=== PATIENT | male | born 1995 | race Caucasian/White ===

== ENCOUNTER 2019-01-31 19:25 | Emergency (ER) | payer MEDICAID, SELFPAY ==
[2019-01-31 19:33] VITALS: BP 142/84; PULSE 84; RESP 17; TEMP 36.6; O2SAT 98
--- NOTE | 2019-01-31 20:07 | ED.GENADUL_ITS ---
Discharge Plan Disposition Patient Disposition: HOME Condition: Good Discharge Details Chief Complaint: RespSymp Clinical Impression: Bronchitis with bronchospasm Primary Care Provider: None,None ED Provider: Troy Gutierrezs and New Rx's Prescriptions: New prednisone 20 mg tablet 40 mg PO HS Qty: 8 RF: 0 doxycycline hyclate [Morgidox] 100 mg capsule 100 mg PO BID Qty: 12 RF: 0 albuterol sulfate 90 mcg/actuation HFA aerosol inhaler 2 puff IH Q4H PRN (Reason: shortness of breath or wheezing) Qty: 8.5 RF: 0 Continued Aspirin/Acetaminophen/Caffeine [Excedrin Migraine Caplet] 1 EACH Tablet 1 ea PO PRN PRNRF: 0 buprenorphine-naloxone [Suboxone] 4-1 mg Film 4 film sublingual DAILY RF: 0 Discharge Instructions Instructions: Doxycycline (By mouth), Albuterol (By breathing), Prednisone (By mouth), How to Use a Metered-Dose Inhaler and a Spacer (ED) Additional Instructions: Take prednisone at night for the next 4 days. Take antibiotic twice a day for a week. Use inhaler 2 puffs every 4-6 hours for shortness of breath or wheezing. Stay hydrated. Avoid sunlight due to photosensitivity related to antibiotic. Follow-up with primary care next week if not better. Return to emergency department if you develop increasing shortness of breath, mental status changes, chest pain, other concerns or problems. Referrals: Primary Care Provider [Outside] Medical Decision Making Patient with 2-week history of worsening respiratory illness. Was actually getting better and subsequently got worse. Is wheezing throughout. Will defer x-ray as at this point we will start steroids and antibiotics. We will give neb treatments here. We will plan discharge with MDI inhaler, steroids, antibiotic. Patient responded to nebs nicely. His wheezing is almost gone. He feels much better. Discharge home to follow-up with primary care next week if not better. Return to ED for increasing shortness of breath, chest pain, mental status changes, other concerns or problems. HPI General Mode of arrival: ambulatory . Date/Time Provider Initiated Documentation: 01/31/19 20:06 . Limitations to Documentation: no limitations . Information obtained by: patient and RN notes reviewed . HPI Narrative: Patient presents to emergency department with complaint of cough, wheezing, shortness of breath especially with exertion. He has been ill for 2 weeks now. He thought he was getting better but then suddenly got worse again. He has had sweats and chills but does not know whether he has had fever. He has had congestion on and off. Cough at this point is nonproductive. He has no pleuritic chest pain. He has no nausea vomiting. He is eating and drinking normally. He does not have a history of asthma but does smoke. He has had episodes of bronchitis in the past. Related Data Home Medications Medication Instructions Recorded Confirmed Aspirin/Acetaminophen/Caffeine 1 ea PO PRN PRN 07/11/17 01/31/19 [Excedrin Migraine Caplet] albuterol sulfate 2 puff IH Q4H PRN #8.5 gm 01/31/19 buprenorphine-naloxone [Suboxone] 4 film SUBLINGUAL DAILY 01/31/19 01/31/19 doxycycline hyclate [Morgidox] 100 mg PO BID #12 cap 01/31/19 prednisone 40 mg PO HS #8 tab 01/31/19 Previous Rx's Medication Instructions Recorded albuterol sulfate 2 puff IH Q4H PRN #8.5 gm 01/31/19 doxycycline hyclate [Morgidox] 100 mg PO BID #12 cap 01/31/19 prednisone 40 mg PO HS #8 tab 01/31/19 Allergies Allergy/AdvReac Type Severity Reaction Status Date / Time No Known Allergies Allergy Unverified 01/31/19 19:35 General Stated Complaint: RespSymp YESSY: 3 Review of Systems Review of Systems Narrative: As documented in HPI otherwise negative as below. Const: positive sweats and chills; no fever, weakness Resp: positive cough, SOB with exertion; no pleuritic pain CV: no CP, edema, syncope GI: no abdominal pain, nausea, vomiting, diarrhea Neuro: no headache, numbness, focal weakness, confusion PFS Social History Smoking/Tobacco Use Status: Current every day Tobacco Type: cigarettes Tobacco: How many years used: 10 Alcohol Intake: never Drug use: Never Substance use type: former substance user, crack/cocaine and heroin Do you feel safe at home: Yes Do you feel safe in your relationship?: Yes Exam Narrative Exam Narrative: Vitals: Afebrile. BP up a little. Vitals otherwise normal with normal saturations. Const: WDWN male in NAD. HEENT: NC/AT. Normal facial exam. TMs normal bilaterally. OP normal. Eyes: Normal conjunctiva and sclera. Neck: Supple. Trachea midline. Lungs: Normal respiratory effort. Lungs with diffuse wheezing throughout but decent air exchange. Cor: RRR without murmur/gallop. Good radial pulses. Neuro: A+O x 3. CN grossly in tact. Good strength and no focal deficit. Ext: No C/C/E. No calf tenderness. Skin: Warm and dry without rash. Course Vital Signs Vital signs: Vital Signs Temperature 97.9 F 01/31/19 19:33 Pulse 84 01/31/19 19:33 Respiratory Rate 17 01/31/19 19:33 Blood Pressure 142/84 H 01/31/19 19:33 Pulse Oximetry 98 01/31/19 19:33 Temperature 97.9 F 01/31/19 19:33 Temperature Source Skin 01/31/19 19:33 Pulse 84 01/31/19 19:33 Respiratory Rate 17 01/31/19 19:33 Respiratory Effort Short of Breath 01/31/19 19:41 Respiratory Depth Normal 01/31/19 19:41 Blood Pressure 142/84 H 01/31/19 19:33 Blood Pressure Position Sitting 01/31/19 19:33 Pulse Oximetry 98 01/31/19 19:33 Oxygen Delivery Method Room Air 01/31/19 19:33 Oxygen Flow Rate 0 01/31/19 19:33 Pain Level 0 01/31/19 19:33
[2019-01-31] MEDS: Doxycycline Hyclate 100 MG CAP PO ×2 (20:28→21:04)
[2019-01-31] MEDS: predniSONE 20 MG TAB 60 MG PO (20:28)
[2019-01-31 20:29] VITALS: RESP 17; RESP 4; O2SAT 98
[2019-01-31] MEDS: Albuterol/Ipratropium 3 ML UPD VIAL UPD (20:29)
[2019-01-31] MEDS: Albuterol 2.5 MG/3 ML INH SOLN VIAL UPD (20:29)
[2019-01-31] MEDS: Albuterol HFA 8 GM 60 PUFF INH IH (21:04)
[2019-01-31 21:08] VITALS: BP 124/67; PULSE 78; RESP 18; TEMP 36.8; O2SAT 98
== END 2019-01-31 21:15 | disposition home or self-care (01) ==
PROVIDERS: Emergency Provider Emergency Medicine
DX: J20.9 Acute bronchitis, unspecified (principal); F17.210 Nicotine dependence, cigarettes, uncomplicated
CPT/HCPCS: 94640; 99284; 99283; J7512; J7613; J7620

== ENCOUNTER 2019-02-05 11:21 | Emergency (ER) | payer MEDICAID, SELFPAY ==
[2019-02-05 11:35] VITALS: BP 134/62; PULSE 80; RESP 16; TEMP 36.8; O2SAT 99
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
[2019-02-05] MEDS: Lidocaine 5% Patch 1 PATCH TP (12:47)
[2019-02-05 13:00] VITALS: BP 129/64; PULSE 79; RESP 16; TEMP 36.9; O2SAT 98
== END 2019-02-05 13:02 | disposition home or self-care (01) ==
PROVIDERS: Emergency Provider Emergency Medicine
DX: S20.222A Contusion of left back wall of thorax, initial encounter (principal); Y04.0XXA Assault by unarmed brawl or fight, initial encounter
CPT/HCPCS: 99283; 71046; 71100

== ENCOUNTER 2020-03-11 07:53 | Outpatient (CLI) | payer MEDICAID, SELFPAY ==
[2020-03-14 16:40] LABS: Patient Race White; SARS-CoV-2 RNA Undetected (Undetected); SARS-CoV-2 Specimen Source Nasal
== END 2020-03-11 08:13 ==
PROVIDERS: Visit Provider Family Medicine
DX: R50.9 Fever, unspecified (principal); R05 Cough
CPT/HCPCS: U0003

== ENCOUNTER 2020-04-15 18:57 | Emergency (ER) | payer MEDICAID, SELFPAY ==
--- NOTE | 2020-04-15 19:03 | ED.GENADUL_ITS ---
Discharge Plan Disposition Patient Disposition: HOME Condition: Fair Discharge Details Clinical Impression: Bronchitis, Asthma exacerbation Primary Care Provider: None,None ED Provider: Yael Burnham Home Meds and New Rx's Prescriptions: New ipratropium-albuterol 0.5 mg-3 mg(2.5 mg base)/3 mL solution for nebulization 3 ml inhalation QID PRN (Reason: shortness of breath or wheezing) Qty: 90 RF: 0 Continued Aspirin/Acetaminophen/Caffeine [Excedrin Migraine Caplet] 1 EACH Tablet 1 ea PO PRN PRNRF: 0 buprenorphine-naloxone [Suboxone] 4-1 mg Film 2 film sublingual DAILY RF: 0 albuterol sulfate 90 mcg/actuation HFA aerosol inhaler 2 puff IH Q4H PRN (Reason: shortness of breath or wheezing) Qty: 8.5 RF: 0 Discharge Instructions Instructions: Ipratropium/Albuterol (By breathing), Acute Bronchitis (ED) Additional Instructions: Encourage water intake. Stop smoking. Please use the duo nebulizer as needed 4 times a day to help with the breath or wheezing. Follow-up with primary care in the next week, I have asked our care managers to help arrange for this. I have also referred you for further testing with respiratory therapy. Covid testing will be arranged as an outpatient due to Covid testing sent. They will call you to schedule a follow-up appointment. If you develop chest pain, difficulty breathing, increase shortness of breath, fevers or other new/worsening symptoms please seek care urgently once again. Otherwise, you will need to quarantine until your Covid testing results are back. Stand Alone Forms: POSITIVE COVID-19/TO BE TESTED, Work Release Medical Decision Making Patient is a pleasant 24-year-old male with past medical history of asthma presenting today with chief complaint of shortness of breath. Reports he has had a cough and chest congestion for the past few days. He denies any fevers or chills. States that he does feel tight. He has been using his albuterol inhaler 2X per day with minimal relief. He denies any chest pain. Denies any GI upset. States he has had similar symptoms historically. Brought in today for evaluation for potential COVID-19 as was required by his place of employment. On exam, patient appears to be no acute distress. He is noted to be slightly tachycardic with heart rate of 113. He is in no respiratory distress. He has wheezing noted scattered fairly diffusely. Plan to obtain chest x-ray and give duo nebulizer. Respiratory therapy was able to set the patient up with an outpatient nebulizer. He does report feeling much improved after the DuoNeb. He is clinically improved as his heart rate is coming down and his breathing is vastly improved. FINDINGS: Lungs: Lungs are adequately inflated and symmetric. No focal consolidation or pulmonary edema. Pleural space: No pleural effusion. No pneumothorax. Heart/Mediastinum: Cardiomediastinal contours within normal limits. Bones/joints: No acute osseous finding. IMPRESSION: No acute cardiopulmonary finding. Discussed his findings with the patient. We discussed this likely associated with acute viral illness with asthma exacerbation and/or bronchitis. He will continue to use the nebulizer as instructed by RT. Patient was sent home with DuoNeb treatments. Patient does not have a primary care locally. I have asked that care management help arrange for follow-up. He will follow-up for outpatient COVID-19 testing in the tent will continue to quarantine until his results are back. Work note will be given. RT is also recommended outpatient testing for PFTs. After his acute illness, he will follow-up with RT. Strict return precautions were given. All his questions and concerns were addressed and he is in agreement this plan. HPI General Mode of arrival: ambulatory . Date/Time Provider Initiated Documentation: 04/15/20 19:03 . Limitations to Documentation: no limitations . Information obtained by: patient, RN notes reviewed and old records reviewed . History of Present Illness 24 year old M presents to the emergency department with the chief complaint of cough, congestion, described as moderate and similar to prior episodes, Quality is described as other (not painful, feels tight), and is localized to the chest. Patient started experiencing this day(s) and it has been constant. Medication improves symptom(s), (used albuterol inhaler x 2 today) No exacerbating factors reported . Patient notes cough and shortness of breath; denies chest pain, fever/chills, loss of appetite, nausea/vomiting, rash and weakness. Patient did receive the following treatments prior to arrival, none Related Data Home Medications Medication Instructions Recorded Confirmed Aspirin/Acetaminophen/Caffeine 1 ea PO PRN PRN 07/11/17 04/15/20 [Excedrin Migraine Caplet] albuterol sulfate 2 puff IH Q4H PRN #8.5 gm 01/31/19 04/15/20 buprenorphine-naloxone [Suboxone] 2 film SUBLINGUAL DAILY 01/31/19 04/15/20 ipratropium-albuterol 3 ml INHALATION QID PRN #90 ml 04/15/20 Previous Rx's Medication Instructions Recorded albuterol sulfate 2 puff IH Q4H PRN #8.5 gm 01/31/19 ipratropium-albuterol 3 ml INHALATION QID PRN #90 ml 04/15/20 Allergies Allergy/AdvReac Type Severity Reaction Status Date / Time No Known Allergies Allergy Unverified 04/15/20 19:22 General YESSY: 3 Review of Systems Constitutional Constitutional: Reports as per HPI, Denies chills, Denies fever(s), Denies headache(s), Denies lethargy and Denies poor appetite Eyes Eyes: Denies change in vision ENT Ears, Nose, Mouth, and Throat: Denies dizziness and Denies headache(s) Cardiovascular Cardiovascular: Reports as per HPI, Denies chest pain at rest, Denies chest pain with activity, Denies lightheadedness, Denies radiating jaw, neck or arm pain and Reports dyspnea Respiratory Respiratory: Reports as per HPI, Reports chest congestion, Reports cough, Denies hemoptysis, Denies pain on inspiration, Denies pain with cough, Reports dyspnea, Denies stridor and Reports wheezing Gastrointestinal Gastrointestinal: Reports as per HPI, Denies abdominal pain, Denies diarrhea, Denies nausea and Denies vomiting Genitourinary Genitourinary: Denies system reviewed and no additional complaints, except as documented (denies change in urinary habits) Musculoskeletal Musculoskeletal: Reports as per HPI and Denies back pain Integumentary/Breasts Skin/Breast: Reports as per HPI and Denies rash Neurologic Neurologic: Reports as per HPI, Denies dizziness and Denies headache(s) Allergic/Immunologic Allergic/Immunologic: Reports wheezing PFSH Social History Smoking/Tobacco Use Status: Current every day Tobacco Type: cigarettes Tobacco: How many years used: 10 Smoking risk assessment performed?: Yes Alcohol Intake: current Alcohol Intake frequency: holidays/special occasions only Drug use: Never Substance use type: former substance user, marijuana, crack/cocaine and heroin Details: uses marijuana daily. Has been clean from [facility] x 11 months Do you feel safe at home: Yes Do you feel safe in your relationship?: Yes Exam Const General: cooperative, healthy appearing, comfortable, no acute distress and well developed Nutritional Appearance: average body habitus and well nourished Orientation: alert, awake and oriented x3 HENMT Head: normal to inspection Ears: hearing grossly normal bilaterally Mouth: moist mucous membranes Chest Chest: normal inspection of the chest, normal palpation of entire chest wall and no crepitus Resp Effort & Inspection: normal respiratory effort, able to speak in complete sente nces and no respiratory distress Auscultation: no crackles, no rales, no rhonchi and wheezes expiratory wheezes, inspiratory wheezes and scattered wheezes Cardio Rate: tachycardic Rhythm: regular rhythm Heart Sounds: S1 normal and S2 normal Skin General skin exam: no rashes or lesions noted Trauma: no lacerations or abrasions Neuro General: patient alert, patient awake and patient oriented x3 Cognition: normal cognition Speech: speech normal Gait: normal gait Extrem General: normal to inspection, capillary refill normal, no pedal edema, no calf tenderness and normal gait Psych Appearance: grossly normal and well kempt Mental Status: mental status grossly normal Speech and Movement: speech and movement normal
[2020-04-15 19:05] VITALS: BP 122/82; PULSE 113; RESP 20; TEMP 37.1; O2SAT 96
--- NOTE | 2020-04-15 19:15 | DI.RAD_ITS ---
EXAM: XR PORTABLE CHEST AP CLINICAL HISTORY: SOB, cough. TECHNIQUE: 2D digital imaging was performed. COMPARISON: CR XR RIBS LT W PA LAT CHEST from 02/05/2019 FINDINGS: Heart size normal. Mediastinum is not widened. Lungs are clear with no infiltrates nor pleural effu sions. No pneumothorax. IMPRESSION: No acute pulmonary findings on this AP portable view of the chest. DATA REPOSITORY: RADIATION DOSE DELIVERED:
[2020-04-15 19:36] VITALS: PULSE 114; RESP 20; RESP 4; O2SAT 96
[2020-04-15] MEDS: Albuterol/Ipratropium 3 ML UPD VIAL UPD (19:36)
[2020-04-15 19:41] VITALS: RESP 20
[2020-04-15 19:45] VITALS: BP 119/67; PULSE 98; RESP 20; O2SAT 99
--- NOTE | 2020-04-15 20:03 | DI.VRAD_ITS ---
PROCEDURE INFORMATION: Exam: XR Chest, 1 View Exam date and time: 04/15/2020 7:28 PM Age: 24 years old Clinical indication: Other: SOB, cough TECHNIQUE: Imaging protocol: XR of the chest Views: 1 view. COMPARISON: CR XR RIBS LT W PA LAT CHEST 02/05/2019 12:06 PM FINDINGS: Lungs: Lungs are adequately inflated and symmetric. No focal consolidation or pulmonary edema. Pleural space: No pleural effusion. No pneumothorax. Heart/Mediastinum: Cardiomediastinal contours within normal limits. Bones/joints: No acute osseous finding. IMPRESSION: No acute cardiopulmonary finding. Dictated and Authenticated by: Wu Nichols MD. Ordering:STEW Conley MD
[2020-04-15] MEDS: Albuterol/Ipratropium 3 ML UPD VIAL 2 ML UPD (20:41)
--- NOTE | 2020-04-15 23:52 | NUR.NOTE ---
referral for pcp establishment was sent to [facility] Nursing Note:
--- NOTE | 2020-04-16 18:02 | PDOC.ERCMPRO ---
- If Service Date Differs Date of service: 04/16/20 Time of Service: 18:02 Care Management Progress Note Nila is seen in the ED on 04/15/20 for asthma/bronchitis. At the request of ED provider, [facility] coordinates a referral to Shan Murphy MD, on-call provider, of [facility], to assist Nila in obtaining a follow up appointment and in establishing care with a PCP. He has Medicaid for insurance.
== END 2020-04-15 20:47 | disposition home or self-care (01) ==
PROVIDERS: Emergency Provider Physician Assistant
DX: J44.0 Chronic obstructive pulmonary disease with (acute) lower respiratory infection (principal); J20.9 Acute bronchitis, unspecified; J45.901 Unspecified asthma with (acute) exacerbation; F17.210 Nicotine dependence, cigarettes, uncomplicated
CPT/HCPCS: 94640; 99284; 71045; J7620

== ENCOUNTER 2020-04-19 17:11 | Outpatient (REF) | payer MEDICAID, SELFPAY ==
[2020-04-22 16:05] LABS: COVID-19 RT-PCR Result NEGATIVE (Negative)
== END 2020-04-19 17:31 ==
LOC: NCHCN 17:11
PROVIDERS: Visit Provider Physician Assistant Medical
DX: Z11.59 Encounter for screening for other viral diseases (principal)
CPT/HCPCS: U0003

== ENCOUNTER 2021-08-27 17:23 | Outpatient (REF) | payer MEDICAID, SELFPAY | END 2021-08-27 17:24 | disposition home or self-care (01) | LOC: LBN 17:23 | PROVIDERS: Visit Provider Physician Assistant Medical | DX: H60.02 Abscess of left external ear (principal) | CPT/HCPCS: 87077; 87070; 87205 ==

== ENCOUNTER 2021-11-18 03:24 | Emergency (ER) | payer MEDICAID, SELFPAY ==
[2021-11-18 03:39] VITALS: BP 157/87; PULSE 111; RESP 16; TEMP 36; O2SAT 96
--- NOTE | 2021-11-18 04:01 | ED.GENADUL_ITS ---
Discharge Plan Disposition Patient Disposition: HOME Condition: Improving Discharge Details Clinical Impression: Cellulitis of multiple sites of upper arm Primary Care Provider: None,None ED Provider: Josemanuel Dotson Home Meds and New Rx's Prescriptions: New sulfamethoxazole-trimethoprim [Bactrim DS] 800-160 mg tablet 1 tab PO BID 7 Days Qty: 14 0RF Continued Aspirin/Acetaminophen/Caffeine [Excedrin Migraine Caplet] 1 EACH Tablet 1 ea PO PRN PRN buprenorphine-naloxone [Suboxone] 4-1 mg Film 2 film sublingual DAILY Rx Instructions: 2 mg 1 film Daily albuterol sulfate 90 mcg/actuation HFA aerosol inhaler 2 puff IH Q4H PRN (Reason: shortness of breath or wheezing) Qty: 8.5 0RF ipratropium-albuterol 0.5 mg-3 mg(2.5 mg base)/3 mL solution for nebulization 3 ml inhalation QID PRN (Reason: shortness of breath or wheezing) Qty: 90 0RF Discharge Instructions Instructions: Cellulitis (ED) Additional Instructions: Please do your best to stop picking at your wounds. Gentle soap and water cleanse once daily then pat dry. Take antibiotics as prescribed. Return to ER for any acute concerns. No alcohol with the Bactrim as it can cause an adverse reaction Medical Decision Making 26-year-old male presents with concern for MRSA abscesses. He recently relapsed on cocaine and heroin and when he is using he tends to pick at his skin. On exam he has numerous areas of excoriated lesions. None are true abscesses. I will place him on a course of Bactrim. He is stable and appropriate for outpatient management HPI General Mode of arrival: ambulatory . Date/Time Provider Initiated Documentation: 11/18/21 03:55 . Limitations to Documentation: no limitations . Information obtained by: patient . History of Present Illness 26 year old M presents to the emergency department with the chief complaint of Infected skin lesions on the arms, described as mild, and is localized to the left, right and upper extremity. Patient reports no radiation. Patient started experiencing this day(s) and it has been constant. No relieving factors improve symptom(s), No exacerbating factors reported . Patient notes denies fever/chills. Patient did receive the following treatments prior to arrival, none Related Data Home Medications Medication Instructions Recorded Confirmed Aspirin/Acetaminophen/Caffeine 1 ea PO PRN PRN 02/26/18 12/01/20 [Excedrin Migraine Caplet] albuterol sulfate 90 mcg/actuation 2 puff inhalation Q4H PRN 01/31/19 04/15/20 aerosol inhaler shortness of breath or wheezing #8.5 grams buprenorphine 4 mg-naloxone 1 mg 2 film sublingual DAILY 01/31/19 04/15/20 sublingual film (Suboxone) ipratropium 0.5 mg-albuterol 3 mg 3 ml inhalation QID PRN shortness 04/15/20 (2.5 mg base)/3 mL nebulization of breath or wheezing #90 mL soln sulfamethoxazole 800 1 tab PO BID 7 days #14 tabs 11/18/21 mg-trimethoprim 160 mg tablet (Bactrim DS) Previous Rx's Medication Instructions Recorded albuterol sulfate 90 mcg/actuation 2 puff inhalation Q4H PRN 01/31/19 aerosol inhaler shortness of breath or wheezing #8.5 grams ipratropium 0.5 mg-albuterol 3 mg 3 ml inhalation QID PRN shortness 04/15/20 (2.5 mg base)/3 mL nebulization of breath or wheezing #90 mL soln sulfamethoxazole 800 1 tab PO BID 7 days #14 tabs 11/18/21 mg-trimethoprim 160 mg tablet (Bactrim DS) Allergies Allergy/AdvReac Type Severity Reaction Status Date / Time No Known Allergies Allergy Unverified 11/18/21 03:44 General Stated Complaint: RashLesion YESSY: 4 Review of Systems Narrative: Using cocaine and heroin and has been picking at skin lesions [facility] All Active Problems (Updated 11/18/21 @ 04:04 by Josemanuel Dotson MD) Cellulitis of multiple sites of upper arm (Acute) Social History Smoking/Tobacco Use Status: Current every day Tobacco Type: cigarettes Tobacco: How many years used: 10 Smoking risk assessment performed?: Yes Alcohol Intake: never Drug use: Daily Substance use type: marijuana, crack/cocaine and heroin Do you feel safe at home: Yes Do you feel safe in your relationship?: Yes Exam Narrative Exam Narrative: GEN: awake, alert, oriented 3. Pleasant, well groomed, interactive. HEAD: Normocephalic, atraumatic ENT: Mucous membranes moist, oropharynx unremarkable, External ear exam unrem arkable EYES: PERRL, EOMI NECK: Full ROM, no ANDRIA, no menigismus CHEST/RESP: No respiratory EXT: Full ROM, bilateral arms with cystic lesions, excoriated Neuro: Grossly normal neurologic exam, conversant, interactive. Psych: Speech fluent, thoughts congruent, affect normal Course Vital Signs Vital signs: Vital Signs Temperature 36.0 C L 11/18/21 03:39 Pulse 111 H 11/18/21 03:39 Respiratory Rate 16 11/18/21 03:39 Blood Pressure 157/87 H 11/18/21 03:39 Pulse Oximetry 96 11/18/21 03:39 Temperature 36.0 C L 11/18/21 03:39 Temperature Source Oral 11/18/21 03:39 Pulse 111 H 11/18/21 03:39 Respiratory Rate 16 11/18/21 03:39 Respiratory Effort Non-Labored 11/18/21 03:41 Blood Pressure 157/87 H 11/18/21 03:39 Blood Pressure Position Sitting 11/18/21 03:39 Pulse Oximetry 96 11/18/21 03:39 Oxygen Delivery Method Room Air 11/18/21 03:39 Oxygen Flow Rate 0 11/18/21 03:39 Pain Level 5 11/18/21 03:39
== END 2021-11-18 04:30 | disposition home or self-care (01) ==
PROVIDERS: Emergency Provider Emergency Medicine
DX: L03.113 Cellulitis of right upper limb (principal)
CPT/HCPCS: 99283

== ENCOUNTER 2023-01-25 23:08 | Emergency (ER) | payer MEDICAID, SELFPAY ==
[2023-01-25 23:10] VITALS: BP 178/98; PULSE 119; RESP 20; TEMP 38.4; O2SAT 97
--- NOTE | 2023-01-25 23:18 | ED.GENADUL_ITS ---
Discharge Plan Disposition Patient Disposition: Home Condition: Stable Discharge Details Clinical Impression: Cellulitis of face ED Provider: Ernesto Blount Home Meds and New Rx's Prescriptions: New amoxicillin-pot clavulanate 875-125 mg tablet 1 tab PO BID Qty: 14 0RF amoxicillin-pot clavulanate 875-125 mg tablet 1 tab PO BID Qty: 14 0RF sulfamethoxazole-trimethoprim [Bactrim DS] 800-160 mg tablet 1 tab PO BID Qty: 14 0RF Continued Aspirin/Acetaminophen/Caffeine [Excedrin Migraine Caplet] 1 EACH Tablet 1 ea PO PRN PRN buprenorphine-naloxone [Suboxone] 4-1 mg Film 2 film sublingual DAILY Rx Instructions: 2 mg 1 film Daily albuterol sulfate 90 mcg/actuation HFA aerosol inhaler 2 puff IH Q4H PRN (Reason: shortness of breath or wheezing) Qty: 8.5 0RF ipratropium-albuterol 0.5 mg-3 mg(2.5 mg base)/3 mL solution for nebulization 3 ml inhalation QID PRN (Reason: shortness of breath or wheezing) Qty: 90 0RF Discharge Instructions Instructions: Cellulitis (ED) Additional Instructions: if not better within a week follow up with your primary care provider or urgent care if you feel more ill, have severe worsening pain or difficulty breathing return to the emergency department Medical Decision Making 27 yo male with hx of substance abuse currently has been using heroin, states he used 6 hours ago, comes in with 3-4 days of upper lip redness and swelling. Did not notice a fever at home but is febrile here. He denies injecting into his lip or face. His upper lip and the skin above it are read and swollen. No swelling around the eyes, eomi without pain, no visible abscess in the mouth. No murmurs or janeway lesions. Does have numerous excoriations over his body as he states he has a tendency to pick his skin while using drugs. Caox4 with clear speech and clinically sober on arrival. Suspect facial cellulitis, will obtain cbc, cmp and ct to evaluate for abscess. pt stable, wbc of 21, ct shows 2 small abscess (1.8cm over left maxillary buccal cortex and upper lip 2x1.4cm). I offered to attempt I and D, pt declines at this time, has decision making capacity and understands without drainage it could get worse and lead to worsening infection which could lead to potential permanent disability and even and he is willing to accept these risks. He understands that he needs to return immediately should he worsen in any way, and he will f/u with his pcp/express care if not improving within a week. Differential Diagnosis Differential Diagnosis: cellulitis, abscess Medical Records Medical records reviewed: Yes I reviewed the patient's medical records. Imaging Data Radiologic Study: Attestation: I personally reviewed and interpreted this imaging study as follows: Imaging: CT Scan Radiologist's impression: IMPRESSION: Upper lip abscess as described. Suspected left-sided subperiosteal abscess as described. Mild submandibular adenopathy presumed reactive Lab Data Lab results reviewed: Yes I reviewed the patient's lab results. HPI General Mode of arrival: ambulatory . Date/Time Provider Initiated Documentation: 01/25/23 23:09 . Limitations to Documentation: no limitations . Information obtained by: patient . History of Present Illness 27 year old M presents to the emergency department with the chief complaint of lip swelling, described as moderate, Patient started experiencing this day(s) (4) and it has been constant. No relieving factors improve symptom(s), No exacerbating factors reported . Patient notes no other symptoms.; denies chest pain and shortness of breath. Patient did receive the following treatments prior to arrival, none Related Data Home Medications Medication Instructions Recorded Confirmed Aspirin/Acetaminophen/Caffeine 1 ea PO PRN PRN 07/11/17 01/25/23 [Excedrin Migraine Caplet] albuterol sulfate 90 mcg/actuation 2 puff inhalation Q4H PRN 01/31/19 01/25/23 aerosol inhaler shortness of breath or wheezing #8.5 grams buprenorphine 4 mg-naloxone 1 mg 2 film sublingual DAILY 01/31/19 01/25/23 sublingual film (Suboxone) ipratropium 0.5 mg-albuterol 3 mg 3 ml inhalation QID PRN shortness 04/15/20 01/25/23 (2.5 mg base)/3 mL nebulization of breath or wheezing #90 mL soln amoxicillin 875 mg-potassium 1 tab PO BID #14 tabs 01/26/23 clavulanate 125 mg tablet amoxicillin 875 mg-potassium 1 tab PO BID #14 tabs 09/13/23 clavulanate 125 mg tablet sulfamethoxazole 800 1 tab PO BID #14 tabs 01/26/23 mg-trimethoprim 160 mg tablet (Bactrim DS) Previous Rx's Medication Instructions Recorded albuterol sulfate 90 mcg/actuation 2 puff inhalation Q4H PRN 01/31/19 aerosol inhaler shortness of breath or wheezing #8.5 grams ipratropium 0.5 mg-albuterol 3 mg 3 ml inhalation QID PRN shortness 04/15/20 (2.5 mg base)/3 mL nebulization of breath or wheezing #90 mL soln amoxicillin 875 mg-potassium 1 tab PO BID #14 tabs 01/26/23 clavulanate 125 mg tablet amoxicillin 875 mg-potassium 1 tab PO BID #14 tabs 01/26/23 clavulanate 125 mg tablet sulfamethoxazole 800 1 tab PO BID #14 tabs 01/26/23 mg-trimethoprim 160 mg tablet (Bactrim DS) Allergies Allergy/AdvReac Type Severity Reaction Status Date / Time No Known Allergies Allergy Unverified 11/18/21 03:44 General Stated Complaint: RashLesion YESSY: 4 Review of Systems All systems reviewed & are unremarkable except as noted in HPI and below Constitutional Constitutional: Denies chills, Denies fever(s) and Denies weakness Eyes Eyes: Denies loss of vision ENT Ears, Nose, Mouth, and Throat: Denies change in voice Cardiovascular Cardiovascular: Denies chest pain and Denies dyspnea Respiratory Respiratory: Denies cough and Denies dyspnea Gastrointestinal Gastrointestinal: Denies abdominal pain, Denies nausea and Denies vomiting Musculoskeletal Musculoskeletal: Denies joint swelling Neurologic Neurologic: Denies loss of vision and Denies weakness PFSH All Active Problems (Updated 01/26/23 @ 00:48 by Ernesto Blount MD) Cellulitis of face (Acute) Social History Smoking/Tobacco Use Status: Current every day Tobacco Type: cigarettes Tobacco: How many years used: 10 Smoking risk assessment performed?: Yes Alcohol Intake: never Drug use: Daily Substance use type: marijuana, crack/cocaine and heroin Do you feel safe at home: Yes Do you feel safe in your relationship?: Yes Exam Const General: no acute distress Orientation: alert HENDC Head: normal to inspection Ears: external ears normal General nose exam: external nose normal Mouth: moist mucous membranes Eyes General: appearance normal, both eyes and all related structures Neck Neck: normal visual inspection Resp Effort & Inspection: normal respiratory effort and able to speak in complete sentences Auscultation: clear to auscultation bilaterally Cardio Jugular venous pressure: no JVD Rate: regular rate Heart Sounds: no murmurs Skin General skin exam: elasticity normal Neuro General: patient alert and patient oriented x3 Extrem General: normal to inspection Psych Mental Status: mental status grossly normal Course Vital Signs Vital signs: Vital Signs Temperature 38.4 C H 01/25/23 23:10 Pulse 119 H 01/25/23 23:10 Respiratory Rate 20 01/25/23 23:10 Blood Pressure 178/98 H 01/25/23 23:10 Pulse Oximetry 97 01/25/23 23:10 Temperature 38.4 C H 01/25/23 23:10 Pulse 119 H 01/25/23 23:10 Respiratory Rate 20 01/25/23 23:10 Respiratory Effort Normal 01/25/23 23:14 Blood Pressure 178/98 H 01/25/23 23:10 Pulse Oximetry 97 01/25/23 23:10 Oxygen Delivery Method Room Air 01/25/23 23:10 Oxygen Flow Rate 0 01/25/23 23:10 Lab/Test Results Lab/Test Results: 01/25/23 23:17 Blood Blood Culture - Pending 01/25/23 23:17 Blood Blood Culture - Pending
--- NOTE | 2023-01-25 23:19 | DI.CT_ITS ---
Exam(s) CT FACIAL W EXAM: CT FACIAL W CLINICAL HISTORY: facial cellulitis, ?abscess. TECHNIQUE: Imaging Protocol: Axial computed tomography images with coronal and sagittal reformatted images were created and reviewed. No IV contrast COMPARISON: No exams were available for comparison FINDINGS: MAXILLOFACIAL CT SCAN: Orbits: There is no evidence of orbital fracture. No abnormal soft tissue findings in the orbits. Paranasal sinuses.: No fluid levels. Post inflammatory sentences noted in floor of the right maxilla ry sinus. No associated fluid level. No bone dehiscence. Facial soft tissues: There is swelling of the anterior left side of the face and extending across the midline under the level of the nose. There is abnormal swelling of the entire upper lip. There is a peripherally enhancing abscess in this region anterior midline and slightly left of midline measuri ng approximately 1.9 x 1.4 x 3 cm cm. Also involves the upper lip. Dental: There is a right-sided periosteal tooth abscess in the mandible. This tooth appears tract medrano s best seen on the coronal images. Osseous: Nasal bone is intact. Nasal septum intact. No fractures evident. Nasopharynx: Unremarkable Oropharynx: No evidence of tonsillar abscess. Hypopharynx: Unremarkable. Lymph nodes: Submandibular adenopathy which is most probably reactive. Salivary glands: Parotid and submandibular glands unremarkable. IMPRESSION: Sub nasal frontal face swelling with prominent abscess also involving the upper lip. Right-sided apical tooth abscess. Appropriate rapid referral recommended. First read by [facility]. RADIATION DOSE DELIVERED: 359.62mGy.cm Total DLP DATA REPOSITORY: All CT scans at this facility are submitted to the National Radiology Data Registry (NRDR) Dose Index Registry (DIR) with the [employer] (ACR). RADIATION OPTIMIZATION: All CT scans at this facility use at least one of these dose optimization te chniques: automated exposure control; mA and/or kV adjustment per patient size (includes targeted exa ms where dose is matched to clinical indication); or iterative reconstruction.
[2023-01-25 23:57] LABS: Abs Immature Grans 0.09 10^3/uL (0.0-0.06); Basophils % 0.3; HCT 40.1 % (40.0-50.0); HGB 13.7 g/dL (13.5-17.5); Immature Grans % 0.4; Lymphocytes % 9.2; MCH 30.4 pg (27.0-33.0); MCHC 34.2 % (32.0-36.0); MCV 89 fL (80-95); MPV 8.6 fL (8.0-11.0); Monocytes % 8.3; Neutrophils % 81.8; Platelet Count 319 10^3/uL (130-400); RDW-SD 42.6 fL; WBC 21.68 10^3/uL (4.4-10.8)
[2023-01-26] LABS: Absolute Basophil Count 0.07 10^3/uL (0.0-0.2); Absolute Lymphocyte Count 1.99 10^3/uL (1.2-3.4); Absolute Neutrophil Count 17.73 10^3/uL (1.2-6.7)
[2023-01-26] MEDS: Normal Saline 1,000 ML 1000 ML IV (00:01)
[2023-01-26] MEDS: cefTRIAXone 2 GM/50 ML BAG IVPB (00:01)
[2023-01-26] MEDS: Dexamethasone 10 MG/ML VIAL IVP (00:01)
[2023-01-26] MEDS: Omnipaque 350 MG/ML 100 ML BTL IV (00:05)
[2023-01-26] MEDS: Normal Saline - Diluent 50 ML VIAL IJ (00:05)
[2023-01-26] MEDS: Normal Saline Flush 10 ML SYR IVP (00:06)
[2023-01-26 00:23] LABS: ALT 22 U/L (16-63); AST 21 U/L (15-37); Albumin 3.9 g/dL (3.4-5.0); Alkaline Phosphatase 85 U/L (46-116); Anion Gap 7.6 mmol/L (3-11); BUN 10 mg/dL (7-18); Bilirubin, Total 0.8 mg/dL (0.2-1.0); CO2 28.4 mmol/L (21.0-32.0); Calcium 8.7 mg/dL (8.5-10.1); Chloride 97 mmol/L (98-107); Estimated GFR 105.14 (mL/min/1.73m2); Glucose 104 mg/dL (74-106); Potassium 3.7 mmol/L (3.5-5.1); Sodium 133 mmol/L (136-145); Total Protein 8.4 g/dL (6.4-8.2)
--- NOTE | 2023-01-26 00:37 | DI.VRAD_ITS ---
PROCEDURE INFORMATION: Exam: CT Maxillofacial With Contrast Exam date and time: 01/26/2023 12:05 AM Age: 27 years old Clinical indication: Other: Facial cellulitis, ? abscess TECHNIQUE: Imaging protocol: Computed tomography of the face with contrast. Radiation optimization: All CT scans at this facility use at least one of these dose optimization techniques: automated exposure control; mA and/or kV adjustment per patient size (includes targeted exams where dose is matched to clinical indication); or iterative reconstruction. Contrast material: OMNIPAQUE 350; Contrast volume: 100 ml; Contrast route: INTRAVENOUS (IV); COMPARISON: No relevant prior studies available. FINDINGS: Orbital cavities: Orbits are normal. Globes are unremarkable. Bones/joints: No acute fracture. Paranasal sinuses: Normal. No air-fluid levels. Soft tissues: Left cheek swelling and subperiosteal abscess measuring 1 point 8 cm axial image 89 overlying the left maxillary buccal cortex. Upper lip abscess suspected measuring up to 2 x 1.4 cm on coronal image 14 Mildly enlarged left greater than right submandibular lymph nodes IMPRESSION: Upper lip abscess as described. Suspected left-sided subperiosteal abscess as described. Mild submandibular adenopathy presumed reactive Dictated and Authenticated by: Nacho Olivas MD. Ordering:RICK Orozco MD
[2023-01-26 01:01] VITALS: BP 136/81; PULSE 98; RESP 18; O2SAT 96
[2023-01-26] MEDS: Sulfameth/Trimeth DS TAB 1 TAB PO (01:03)
== END 2023-01-26 07:33 | disposition home or self-care (01) ==
PROVIDERS: Emergency Provider Emergency Medicine
DX: L03.211 Cellulitis of face (principal); F17.210 Nicotine dependence, cigarettes, uncomplicated
CPT/HCPCS: 80053; 87040; 96361; 96365; 96375; 99285; 70487; 85025; 99284; J1100; J3490

== ENCOUNTER 2023-10-11 14:16 | Inpatient (IN) | payer MEDICAID, SELFPAY ==
[2023-10-11] VITALS (39 sets, daily range): BP systolic 115–159; BP diastolic 77–97; PULSE 58–145; RESP 9–23; TEMP 36.4–37.3; O2SAT 97–100
--- NOTE | 2023-10-11 14:30 | RT.EKG_ITS ---
APPROVED REPORT Exam: Resting ECG Reason for Exam: Chest Pain Patient Location: E HR:119 bpm ECG Measurements Heart Rate 119 AXIS NJ 171 P 79 QRSd 90 QRS 91 QT 301 T 2 QTc 422 Conclusion Sinus tachycardia...rate> 99 ST elev, probable normal early repol pattern...ST elevation, age<55 Narrow complex sinus tachycardia at a rate of 119. Normal axis. Intervals within normal limits. Mi ld upsloping ST segments V2 and V3. No ST segment depressions. No prior for comparison. No acute i njury pattern.
--- NOTE | 2023-10-11 14:30 | DI.CT_ITS ---
Exam(s) CT CHEST PE ABD PELVIS W EXAM: CT CHEST PE ABD PELVIS W CLINICAL HISTORY: Left-sided chest pain upper abdominal pain. TECHNIQUE: Imaging Protocol: Axial computed tomography images with coronal and sagittal reformatted images were created and reviewed CONTRAST MATERIAL: Intravenous: Omnipaque 350 Contrast volume:100 ml Oral: / no COMPARISON: CR,XR XR PORTABLE CHEST AP from 04/15/2020 US POCUS EXAM from 10/11/2023 FINDINGS: CHEST: Tracheobronchial tree: Patent. Pulmonary parenchyma: Focal areas of infiltration at the left lower lobe, with cavitation. Small inf iltrate anterior lingula. Pleura: No effusion or pneumothorax. Lymph nodes: Within normal limits. Aorta: Thoracic portion non-dilated. Pulmonary arteries: No evidence of emboli. Heart: No pericardial effusion. Bones: Unremarkable for age. No lytic or blastic lesions.No compression fractures. Soft tissues: Unremarkable. ABDOMEN and PELVIS: Exam is limited by lack of intra-abdominal fat and lack of oral contrast. Liver: Normal density. No measurable mass. Gallbladder and biliary tract: No evidence of stones or wall thickening. No biliary dilatation. Pancreas: Normal density, no abnormal calcifications or inflammatory process. Spleen: Normal. Kidneys: There are patchy areas of decreased perfusion involving both kidneys, suspicious for pyelone phritis. No radiodense stones. No obstructive uropathy. No suspicious masses seen. Adrenal glands: No masses seen. Aorta: Abdominal portion non-dilated. Lymph nodes: Within normal limits. Soft tissues: Unremarkable. Bladder: Unremarkable. Bowel: No obstruction or bowel wall thickening. Peritoneal cavity: No ascites. No focal collection. No mesenteric inflammatory response. Bones: Unremarkable for age. Reproductive organs: Within normal limits. IMPRESSION: Cavitary pneumonia in the left lower lobe. No evidence of pulmonary emboli. Bilateral areas of patchy perfusion suspicious for pyelonephritis. Findings could also represent foc al infarcts. Findings called to Dr. Tello of the emergency department. RADIATION DOSE DELIVERED: 938.12mGy.cm Total DLP DATA REPOSITORY: All CT scans at this facility are submitted to the National Radiology Data Registry (NRDR) Dose Index Registry (DIR) with the [employer] (ACR). RADIATION OPTIMIZATION: All CT scans at this facility use at least one of these dose optimization te chniques: automated exposure control; mA and/or kV adjustment per patient size (includes targeted exa ms where dose is matched to clinical indication); or iterative reconstruction.
--- NOTE | 2023-10-11 14:35 | W.ED.GENAD ---
Discharge Plan Disposition Patient Disposition: Admit to [facility] Discharge Details Clinical Impression: Left lower lobe pneumonia, Opiate withdrawal, Acute superficial venous thrombosis of both lower extremities Admit Date/Time: 10/11/23 19:07 Admit Provider: Donal Guzman Attending Provider: Donal Guzman Primary Care Provider: Unknown,Unknown ED Provider: Shan Tello Discharge Data Discharge Date/Time-TO BE ENTERED AT DEPARTURE: 10/11/23 20:01 HPI General Date/Time Provider Initiated Documentation: 10/11/23 14:35. HPI Narrative: MDM This is a tachycardic normothermic 28-year-old IV drug user with signs of DVTs and chest pain concerning for the possibility of PE and endocarditis for which patient will undergo CT angiogram of his chest. Given left upper quadrant tenderness we will also obtain CT of stomach to assess for splenic arterial aneurysm. No pain or proportion to suggest necrotizing soft tissue infection. No dysuria nor frequency so my suspicion is low for UTI however given my concerns for sepsis I did treat with broad-spectrum antibiotics using piperacillin/tazobactam and vancomycin after drawing 2 sets of blood cultures and checking a lactate. ECG nonischemic however will obtain troponin to assess for myocardial injury given left-sided chest pain. No trauma and equal breath sounds so my suspicion for pneumothorax is low. Patient has no significant lower extremity edema so I did not obtain a proBNP. No tearing quality to suggest aortic dissection. No vomiting to suggest increased risk for esophageal rupture. He has been injecting IV drugs in his right lower extremity where there is swelling and fluctuance concerning for thrombophlebitis versus abscess. Patient will undergo bilateral duplex studies of his lower extremities given he also has contralateral left popliteal fossa tenderness and swelling. Patient is able to move his left knee so I am not concerned for septic joint. Bilateral feet are warm and well-perfused I do not feel that the patient required an angiogram with runoffs as I was not concerned for critical limb ischemia. Patient does have a cough concern for the possibility of pneumonia. Will reassess following labs and imaging. Will provide 1 L of IV fluids and 50 mcg of fentanyl. 3:45 PM CBC shows leukocytosis similar to prior dated last year. No anemia. New thrombocytosis. Mild lactic acidosis with a serum lactate of 1.9. 4:11 PM Comprehensive metabolic panel showing no CHRIS. Mild hyperglycemia and mild anion gap but normal bicarbonate??not consistent with DKA. No acute LFT abnormalities. Negative troponin. 5:45 PM Patient was found to have a cavitary lung pneumonia. He had no PE. He also had bilateral patchy areas of decreased perfusion in his kidneys. Given his IV drug use and concerned about the possibility of endocarditis. Patient will need hospitalization for an echocardiogram. I placed him on airborne precautions as I also sent a QuantiFERON and completed a tuberculosis skin test. Will complete an HIV 6:06 PM Urinalysis nitrite negative not consistent with UTI. Patient began have signs and symptoms of opiate withdrawal for which I treated him with a total of 16 mg of buprenorphine to good effect. I spoke to Dr. Guzman who agreed to accept the patient for hospitalization. US Guided Peripheral IV Procedure Note Indication: Difficult IV access Peripheral Prep: Skin prep: Alcohol prep. Prep agent: Prep was allowed to dry for 30 seconds. Sterility: Gloves. Insertion: Appropriate procedural pause was taken. Ultrasound guided 18-gauge catheter was placed under real-time guidance in the patient's right basilic vein in the forearm. Placement confirmed via bubble study.. Post Procedure: Estimated blood loss: Minimal Complications: None Ultrasound IV confirmed by bubble study. Prior to transfer to the floor. Patient's RUE IV became dislodged. I was asked to place a second US IV. US Guided Peripheral IV Procedure Note Indication: Difficult IV access Peripheral Prep: Skin prep: Alcohol prep. Prep agent: Prep was allowed to dry for 30 seconds. Sterility: Gloves. Insertion: Appropriate procedural pause was taken. Ultrasound guided 20-gauge catheter was placed under real-time guidance in the patient's left basilic vein in the forearm. Placement confirmed via bubble study.. Post Procedure: Estimated blood loss: Minimal Complications: None Ultrasound IV confirmed by bubble study. Chronic conditions affecting the care of the patient: IV drug use History obtained from an outside historian: N/A External record review: [facility] [place] EMR Diagnostic interpretations performed by me: Per my independent interpretation EKG shows: Narrow complex sinus tachycardia at a rate of 119. Normal axis. Intervals within normal limits. Mild upsloping ST segments V2 and V3. No ST segment depressions. No prior for comparison. No acute injury pattern. ]Medications: Broad-spectrum antibiotics IV fluids Social determinants of health affecting disposition: IV drug use Management discussed with: Dr. Guzman Treatment/interventions considered: N/A Response to therapies provided: improved symtoms in the ED HPI This is a 28-year-old male with history of IV drug use using heroin xylazine and fentanyl most recently earlier this morning arriving emergency department via private vehicle in the setting of left-sided flank and chest pain. Patient describes sharp constant pain. He has no history of ureterolithiasis though there is family history in his mother of ureterolithiasis. Patient also endorses bilateral abscesses on the inside of his legs which began about a week ago where he injects. He has had no drainage. He denies having fevers but does feel nauseous and has vomited. He is requesting detox. He endorses some shortness of breath. He is a daily tobacco user but denies routine ethanol. No recent falls. Exam General: Chronically ill-appearing in no acute distress speaking in complete sentences. Head: Normocephalic, atraumatic. Eye: Extraocular eye movements intact. No conjunctival injection. No scleral icterus. Ear, nose, mouth, throat: Grossly normal inspection. Normal voice, handling secretions normally. Neck: Trachea midline. Cardiovascular: Well-perfused distal extremities. Rapid regular rate. No obvious murmur. Respiratory: Nonlabored respiration. Clear lungs bilaterally. Gastrointestinal: Nondistended abdomen. Left upper quadrant tenderness. No rebound. No guarding. Chest wall: Left chest wall tenderness. No flail segments. Musculoskeletal: No edema. Moving all 4 extremities spontaneously. Skin: Scattered healing excoriations to bilateral upper and lower extremities. Right inner thigh there is a fluctuant and tender area measuring approximately 2 x 2 cm concerning for abscess versus thrombophlebitis given IV drug use. Left lower extremity there is tenderness behind the patient's left popliteal fossa. Good range of motion in left knee. Bilateral feet warm well-perfused. Neurologic: Alert and appropriate, no apparent acute deficits. Psychiatric: Mood and manner are appropriate. Grooming and personal hygiene are appropriate. Related Data Home Medications Medication Instructions Recorded Confirmed Unknown [No Known Home Meds] 10/11/23 10/11/23 Allergies Allergy/AdvReac Type Severity Reaction Status Date / Time No Known Allergies Allergy Unverified 10/11/23 14:41 General Stated Complaint: GenMedical YESSY: 3 Course Vital Signs Vital signs: Vital Signs Temperature 37.3 C 10/11/23 14:24 Pulse 145 H 10/11/23 14:24 Respiratory Rate 20 05/28/24 14:24 Blood Pressure 157/78 H 10/11/23 14:24 Pulse Oximetry 100 10/11/23 14:24 Temperature 37.3 C 10/11/23 14:24 Temperature Source Oral 10/11/23 14:24 Pulse 145 H 10/11/23 14:24 Respiratory Rate 20 10/11/23 14:24 Respiratory Effort Normal 10/11/23 14:28 Blood Pressure 157/78 H 10/11/23 14:24 Blood Pressure Position Sitting 10/11/23 14:24 Pulse Oximetry 100 10/11/23 14:24 Oxygen Delivery Method Room Air 10/11/23 14:24 Oxygen Flow Rate 0 10/11/23 14:24 Pain Level 7 10/11/23 14:24 Medical Decision Making Quality:SDOH Health Related Social Needs: Health related social needs risk of homeless, inadequate housing, material hardship Critical Care Time Critical Care Time Critical Care Time: Yes Total Critical Care Time: 30 Attestation: Bedside treatment of tachycardia, opiate withdrawal and sepsis PFSH All Active Problems Acute superficial venous thrombosis of both lower extremities (Acute) Opiate withdrawal (Acute) Left lower lobe pneumonia (Acute) Social History Smoking/Tobacco Use Status: Current every day Tobacco Type: cigarettes Tobacco: How many years used: 10 Smoking risk assessment performed?: Yes Alcohol Intake: never Drug use: Daily Substance use type: marijuana, crack/cocaine and heroin Details: Xylazine and fentanyl use earlier today 10/11/23. Housing: homeless Do you feel safe at home: Yes Do you feel safe in your relationship?: Yes
--- NOTE | 2023-10-11 15:30 | DI.US_ITS ---
Exam(s) US EXTREMITY VENOUS BI EXAM: US EXTREMITY VENOUS BI CLINICAL HISTORY: Right thigh pain left knee pain. TECHNIQUE: Bilateral lower extremity venous ultrasound performed using grayscale, color-flow, and sp ectral Doppler analysis. COMPARISON: US POCUS EXAM from 10/11/[address] CHEST PE ABD PELVIS W from 10/11/2023 FINDINGS: Right lower extremity: Nonocclusive thrombus in the distal common femoral vein at the saphenofemoral junction. Thrombus present in the greater saphenous vein from the junction through the calf, approxi mately 40 cm in length. Additional thrombus in the distal calf, 10 cm in length. The profundus fell mole,, superficial femoral, popliteal vein and calf veins a pre appear free of thrombus. Left lower extremity: The common femoral vein through calf veins are free of thrombus. Thrombus is v isible in the greater saphenous vein 5 millimeters from the saphenofemoral junction through the the c care home overall length of approximately 60 cm. Sheikh's cyst measuring 5 x 1.7 by 4.3 cm. IMPRESSION: Right: Negative for DVT. Extensive saphenous thrombus extending slightly into common femoral vein. Left: Negative for DVT. Extensive thrombus in the greater saphenous vein. Sheikh's cyst. DATA REPOSITORY:
[2023-10-11 15:40] LABS: Abs Immature Grans 0.12 10^3/uL (0.0-0.06); Absolute Basophil Count 0.07 10^3/uL (0.0-0.2); Absolute Lymphocyte Count 1.65 10^3/uL (1.2-3.4); Basophils % 0.4 %; Eosinophils % 0.1 %; HCT 44.3 % (40.0-50.0); HGB 14.8 g/dL (13.5-17.5); Immature Grans % 0.7 %; Lactate 1.9 mmol/L (0.6-1.4); MCH 30.5 pg (27.0-33.0); MCHC 33.4 % (32.0-36.0); MCV 91 fL (80-95); MPV 8.4 fL (8.0-11.0); Monocytes % 3.8 %; Platelet Count 448 10^3/uL (130-400); RBC 4.85 10^6/uL (4.36-5.78); RDW 13.5 % (11.8-14.1); RDW-SD 45.6 fL; WBC 18.38 10^3/uL (4.4-10.8)
[2023-10-11] MEDS: Nicotine 21 MG/24 HR PATCH TD (15:41)
[2023-10-11] MEDS: fentaNYL 100 MCG/2 ML VIAL 50 MCG IVP ×2 (15:41→17:24)
[2023-10-11 15:42] LABS: Absolute Eosinophil Count 0.02 10^3/uL (0.0-0.7); Absolute Neutrophil Count 15.81 10^3/uL (1.2-6.7)
[2023-10-11 16:01] LABS: ALT 80 U/L (16-63); AST 20 U/L (15-37); Albumin 3.4 g/dL (3.4-5.0); Alkaline Phosphatase 96 U/L (46-116); Anion Gap 11.1 mmol/L (3-11); BUN 10 mg/dL (7-18); Bilirubin, Total 0.4 mg/dL (0.2-1.0); CO2 27.9 mmol/L (21.0-32.0); CREATININE 0.9 mg/dL (0.70-1.30); Calcium 9.2 mg/dL (8.5-10.1); Chloride 101 mmol/L (98-107); Estimated GFR 118.57 (mL/min/1.73m2); Glucose 115 mg/dL (74-106); Potassium 3.4 mmol/L (3.5-5.1); Sodium 140 mmol/L (136-145); Total Protein 9.3 g/dL (6.4-8.2)
[2023-10-11 16:02] LABS: Troponin I < 50 ng/L (< or =60)
[2023-10-11] MEDS: Omnipaque 350 MG/ML 100 ML BTL IJ (16:40)
[2023-10-11] MEDS: Normal Saline - Diluent 50 ML VIAL IJ (16:41)
[2023-10-11] MEDS: Normal Saline 1,000 ML 1000 ML IV ×2 (16:56→18:00)
[2023-10-11] MEDS: PIPERACILLIN/TAZO 3.375 GM in Normal Saline 50 ML IVPB (16:57)
[2023-10-11] MEDS: Enoxaparin 60 MG/0.6 ML SYR SC (17:23)
[2023-10-11] MEDS: Ondansetron 4 MG/2 ML VIAL IVP (17:24)
[2023-10-11] MEDS: VANCOMYCIN/WATER (PEG) 1.25 GM/250 ML BAG IVPB (17:55)
[2023-10-11 17:57] LABS: Bilirubin Negative (Negative); Blood Negative (Negative); Clarity Clear (Clear); Glucose Negative (Negative); Ketones Negative (Negative); Leukocyte Esterase Negative (Negative); Nitrite Negative (Negative); Specific Gravity 1.015 (1.005-1.025); pH 8.5 (5-8)
[2023-10-11 18:28] LABS: HIV 1/2 Ab Rapid Negative (Negative)
--- NOTE | 2023-10-11 18:52 | W.PM.HP.N ---
Date of service: 10/11/23 Time of Service: 18:52 Assessment and Plan Assessment and plan (1) Left lower lobe pneumonia: Status: Acute Assessment and plan: Cavitary lesion LLL very likely pulmonary abcess. Tricuspid endocarditis definite possibility in setting of IVDA, though no clinical signs of TR, and I think a septic phlebitis is perhaps a more likely source. Will await cultures, continue Zosyn and Vanco for now and continue full dose Lovenox as well. HIV and TB testing initiated in ER. For OUD will continue Suboxone (states he has been on previously) Tobacco: Nicotine TD 21 History of Present Illness History of Present Illness Chief Complaint: CP Narrative: 28 male with h/o IVDA, here with one day of pleuritic left sided chest pain. Endorses fever and chills as well. In ER w/u of note for temp 38.6, tender cord right groin,white count 18.3, CT chest/abdomen showing cavitary LLL lesion and multiple bilateral areas of decreased attenuation in kidneys c/w possible renal infarct (note U/A negative for hematuria); and LE U/S showing extensive clot in right greater saphenous extending into femoral vein (note that this was reported as negative for DVT). Blood cultures obtained, patient given Zosyn and Vanco (the lkatter extravasated shortly after infusion begun) and full dose Lovenox. Patient also received dose of Suboxone. I was asked to evaluate for asdmission. Review of Systems Narrative: per HPI PFSH All Active Problems Acute superficial venous thrombosis of both lower extremities (Acute) Opiate withdrawal (Acute) Left lower lobe pneumonia (Acute) Social History Smoking/Tobacco Use Status: Current every day Tobacco Type: cigarettes Tobacco: How many years used: 10 Smoking risk assessment performed?: Yes Alcohol Intake: never Drug use: Daily Substance use type: marijuana, crack/cocaine and heroin Details: Xylazine and fentanyl use earlier today 10/11/23. Do you feel safe at home: Yes Do you feel safe in your relationship?: Yes Meds Allergies and Home Medications Allergies Allergy/AdvReac Type Severity Reaction Status Date / Time No Known Allergies Allergy Unverified 10/11/23 14:41 Home Medications Medication Instructions Recorded Confirmed Type Unknown [No Known Home Meds] 10/11/23 10/11/23 History Exam Narrative Exam Narrative: 148/92, 92, 37.3 (max 38.6), 11, 99% RA. HEENT atraumatic; nmeck supple; lungs clear; heart RRR w/o MRG; abdomen soft and NT w/o HSM; extremities w/o edema, tender cord and erythema right groin extending to mid thigh; neuro Ox3, lucid, moves all 4s Results Labs 10/11/23 15:30 10/11/23 15:30 Labs: Laboratory Results - last 24 hr 10/11/23 10/11/23 10/11/23 15:30 17:27 17:41 WBC 18.38 H RBC 4.85 Hgb 14.8 Hct 44.3 MCV 91 MCH 30.5 MCHC 33.4 RDW 13.5 Plt Count 448 H MPV 8.4 Immature Gran % 0.7 Neutrophils % 86.0 Lymphocytes % 9.0 Monocytes % 3.8 Eosinophils % 0.1 Basophils % 0.4 Nucleated RBC % 0.0 Absolute Neutrophils 15.81 H Absolute Lymphocytes 1.65 Absolute Monocytes 0.70 Absolute Eosinophils 0.02 Absolute Basophils 0.07 VBG Lactate 1.9 H Sodium 140 Potassium 3.4 L Chloride 101 Carbon Dioxide 27.9 Anion Gap 11.1 H BUN 10 Creatinine 0.9 Est GFR (CKD-EPI 2020) 118.57 Glucose 115 H Calcium 9.2 Total Bilirubin 0.4 AST 20 ALT 80 H Alkaline Phosphatase 96 Troponin I < 50 Cancelled Total Protein 9.3 H Albumin 3.4 Urine Color Yellow Urine Clarity Clear Urine pH 8.5 H Ur Specific [place] 1.015 Urine Protein Negative Urine Ketones Negative Urine Blood Negative Urine Nitrite Negative Urine Bilirubin Negative Urine Urobilinogen 4.0 H Ur Leukocyte Esterase Negative Urine Glucose Negative HIV 1&2 Antibody Rapid 10/11/23 17:55 WBC RBC Hgb Hct MCV MCH MCHC RDW Plt Count MPV Immature Gran % Neutrophils % Lymphocytes % Monocytes % Eosinophils % Basophils % Nucleated RBC % Absolute Neutrophils Absolute Lymphocytes Absolute Monocytes Absolute Eosinophils Absolute Basophils VBG Lactate Sodium Potassium Chloride Carbon Dioxide Anion Gap BUN Creatinine Est GFR (CKD-EPI 2020) Glucose Calcium Total Bilirubin AST ALT Alkaline Phosphatase Troponin I Total Protein Albumin Urine Color Urine Clarity Urine pH Ur Specific [place] Urine Protein Urine Ketones Urine Blood Urine Nitrite Urine Bilirubin Urine Urobilinogen Ur Leukocyte Esterase Urine Glucose HIV 1&2 Antibody Rapid Negative Last Vital Signs Temp 37.3 C 10/11/23 14:24 Pulse 92 H 10/11/23 18:45 Resp 11 L 10/11/23 18:45 BP 148/92 H 10/11/23 18:45 Pulse Ox 99 10/11/23 17:20 Time Spent Time spent with Patient: 55-74 minutes Time was spent: preparing to see the patient(eg.review tests), obtaining and/or reviewing separately otained hiistory, ordering medications,tests, procedures, referring, communicating with other health dialysis patient care technician and indepentently interpreting results
[2023-10-11] MEDS: Ondansetron O.D.T. 4 MG TABEF PO (19:12)
[2023-10-11] MEDS: Normal Saline Flush 10 ML SYR (22:40)
[2023-10-11] MEDS: Lactated Ringers 1,000 ML 100 ML IV (22:40)
[2023-10-11] MEDS: VANCOMYCIN 750 MG in Normal Saline 250 ML 166.667 MG IVPB (23:58)
[2023-10-12] MEDS: Ondansetron 4 MG/2 ML VIAL IVP ×4 (02:00→20:30)
[2023-10-12] MEDS: PIPERACILLIN/TAZO 3.375 GM in Normal Saline 50 ML IVPB ×4 (02:33→20:41)
[2023-10-12] MEDS: Nicotine 21 MG/24 HR PATCH TD (08:57)
[2023-10-12] MEDS: Buprenorphine/Naloxone 8 mg/2 mg FILM 1 EACH SL (08:57)
[2023-10-12] MEDS: Enoxaparin 60 MG/0.6 ML SYR SC ×2 (08:57→20:26)
[2023-10-12] MEDS: Normal Saline Flush 10 ML SYR IVP ×2 (08:58→14:24)
[2023-10-12 08:59] VITALS: BP 136/59; PULSE 65; RESP 18; TEMP 37.1; O2SAT 99
[2023-10-12] MEDS: Lactated Ringers 1,000 ML 100 ML IV (09:45)
[2023-10-12] MEDS: VANCOMYCIN/WATER (PEG) 750 MG/150 ML BAG 150 MG IVPB ×2 (09:45→18:31)
[2023-10-12 13:19] LABS: HCT 52.6 % (40.0-50.0); HGB 17.6 g/dL (13.5-17.5); MCH 30.1 pg (27.0-33.0); MCHC 33.5 % (32.0-36.0); MCV 90 fL (80-95); MPV 8.9 fL (8.0-11.0); Platelet Count 382 10^3/uL (130-400); RBC 5.84 10^6/uL (4.36-5.78); RDW 13.4 % (11.8-14.1); RDW-SD 44.3 fL; WBC 17.58 10^3/uL (4.4-10.8)
[2023-10-12 13:41] LABS: Lactate 1.9 mmol/L (0.6-1.4)
[2023-10-12 14:06] LABS: Vancomycin, Random 12.5 ug/mL
[2023-10-12 14:28] VITALS: BP 128/81; PULSE 54; RESP 18; TEMP 37.3; O2SAT 99
--- NOTE | 2023-10-12 14:38 | PHA.REVIEW2 ---
Pharmacy Admission Review Admission Clinical Review Admission Pharmacy Review: Acute superficial venous thrombosis of both lower extremities (Acute) Opiate withdrawal (Acute) Left lower lobe pneumonia (Acute) No Known Allergies Allergy (Unverified 10/11/23 14:41) Resuscitation Status Full Code Height 5 ft 11 in Weight 58.06 kg Pharmacy Admission Review Renal Dosing Renal Dosing: BUN 10 mg/dL (7-18) 10/11/23 15:30 Creatinine 0.9 mg/dL (0.70-1.30) 10/11/23 15:30 Medications needing adjustments: Reviewed (CrCl 99.45 mL/min) List of meds needing interventions: Current medications are okay Anticoagulation Anticoagulation: Hgb 17.6 g/dL (13.5-17.5) H D 10/12/23 12:50 Hct 52.6 % (40.0-50.0) H 10/12/23 12:50 Plt Count 382 10^3/uL (130-400) 10/12/23 12:50 Creatinine 0.9 mg/dL (0.70-1.30) 10/11/23 15:30 Therapeutic Anticoagulation: Reviewed Medications: Enoxaparin (60mg q12h) Relevant Labs Relevant Labs: Sodium 140 mmol/L (136-145) 10/11/23 15:30 Potassium 3.4 mmol/L (3.5-5.1) L 10/11/23 15:30 Chloride 101 mmol/L (98-107) 10/11/23 15:30 Electrolytes, C-Reactive P, ESR: Reviewed (Hgb increased from 14.8 to 17.6, no new electrolyte labs for today) Cardiac Review Cardiac Review: Troponin I Cancelled 10/11/23 17:41 BP, HR, EF%: Reviewed (BP WNL, HR 54) QTc Review QTc: Reviewed (422 from 10/11/23) IV to PO Switch IV Medications: Reviewed (ondansetron, Zosyn and vancomycin) Home Meds Home Med List reviewed: Reviewed Relevent Home Meds Not ordered & why?: No home meds listed, checked with [facility] - only showed antibiotics in over the past year Current Meds Current Medication Order Review: Intervened Comments: Added IV admission order set Pharmacy Antibiotic Review Relevant Labs: WBC 17.58 10^3/uL (4.4-10.8) H 10/12/23 12:50 Temperature 37.3 C Temperature 37.1 C Microbiology 10/11/23 15:49 Blood Culture - Preliminary Blood Gram Positive Cocci 10/11/23 15:30 Blood Culture - Preliminary Blood Gram Positive Cocci Pharmacy Antibiotic Activity: C/S review and Reviewed, no change Comments: Patient is on Zosyn and vancomycin day 1 for pneumonia. Vancomycin random level of 12.5 today at 1327. Will continue at 750mg q8h for predicted AUC of 480 and trough of 16.7. Blood cultures growing gram positive cocci. WBC decreased from 18.38.
--- NOTE | 2023-10-12 16:11 | W.PM.PROGNOT ---
Date of Service Date of service: 10/12/23 Time of Service: 16:11 Assessment and Plan Assessment and plan (1) Gram-positive bacteremia: Status: Acute Assessment and plan: likely Staph bacteremia, awaiting echo results but needs treatment for 6 weeks for endocarditis irregardless of echo results but if significant valvular lesion then will need cardiology referral. will check brain CT once his Gold Quantiferon test comes back negative. Doubt this is TB, likely that his cavitary pneumonia is septic embolism. Will treat acute opioid withdrawal w/ repeated doses of buprennorphine (I dc his suboxone in favor of buprenorphine alone), will give compazine for his intractable vomiting and continue w/ iv fluid hydration. continue Zosyn and Vancomycin pending final I.D. and sensitivity of his blood cultures. If MSSA then can treat w/ Ancef but if MRSA then will need either Vancomcyin or Zyvox (2) Cavitary pneumonia: Status: Acute (3) Acute superficial venous thrombosis of both lower extremities: Status: Acute Assessment and plan: DVT involves his CFV and proximal GSV bilaterally so technically this ought to be treated as DVT. He was put on lovenox 1 mg/kg SC q12h last night. will transition to apixaban once we are sure he will not need a procedure. (4) Opiate withdrawal: Status: Acute Assessment and plan: changes suboxone to buprenorphine. Will give 8 mg SL now and repeat TID, also give compazine for nausea and vomiting. Subjective Subjective Interval history since last seen: 28 yr old male w/ hx of IV drug abuse (cocaine and heroin) who presented w/ 2 weeks of cough, dypsnea and pleurtic chest pain and nausea and vomiting. He was found to have left lower lobe cavitary pneumonia and bilateral DVT of CFV and GSV. Blood cultures are now postiive for GPC. He was started on Zosyn and vancomycin. Gold Quantiferon was sent to r/o TB as well. He remains nauseated. No headache, blurred vision or stroke like symptoms. He remains afebrile but still having wretching and vomiting. Abdominal and pelvic CT were unremarkable. Patient is being treated for opoid withdrawal. Exam Narrative Exam Narrative: Thin young male who appears unkempt, multiple scars over both arms from prior injection sites, no open sores Lungs: left lower lung field w/ some coarse rhonchi, right side is clear Heart: regular, normal S1 and S2 no appreciable murmur or rub Abdomen: nondistended, soft, nontender, no palpable masses or organomegaly Lower extremities: bilateral inguinal adenopathy, no palpable pain or edema of his legs; multiple scars over sites from prior injections Objective Last Vital Signs Temp 37.3 C 10/12/23 14:28 Pulse 54 L 10/12/23 14:28 Resp 18 10/12/23 14:28 BP 128/81 10/12/23 14:28 Pulse Ox 99 10/12/23 14:28 Laboratory Results - last 24 hr 10/11/23 10/11/23 10/11/23 17:27 17:41 17:55 WBC RBC Hgb Hct MCV MCH MCHC RDW Plt Count MPV VBG Lactate Troponin I Cancelled Urine Color Yellow Urine Clarity Clear Urine pH 8.5 H Ur Specific [place] 1.015 Urine Protein Negative Urine Ketones Negative Urine Blood Negative Urine Nitrite Negative Urine Bilirubin Negative Urine Urobilinogen 4.0 H Ur Leukocyte Esterase Negative Urine Glucose Negative Random Vancomycin HIV 1&2 Antibody Rapid Negative 10/12/23 10/12/23 12:50 13:27 WBC 17.58 H RBC 5.84 H Hgb 17.6 H D Hct 52.6 H MCV 90 MCH 30.1 MCHC 33.5 RDW 13.4 Plt Count 382 MPV 8.9 VBG Lactate 1.9 H Troponin I Urine Color Urine Clarity Urine pH Ur Specific [place] Urine Protein Urine Ketones Urine Blood Urine Nitrite Urine Bilirubin Urine Urobilinogen Ur Leukocyte Esterase Urine Glucose Random Vancomycin 12.5 HIV 1&2 Antibody Rapid Time Spent with Patient Time Spent with Patient: 35-49 minutes Time was spent: preparing to see the patient(eg.review tests), obtaining and/or reviewing separately otained hiistory, ordering medications,tests, procedures, referring, communicating with other health home health care provider, indepentently interpreting results, counseling the patient and care coordination
[2023-10-12] MEDS: Prochlorperazine 10 MG/2 ML VIAL 5 MG IVP (16:46)
[2023-10-12 18:46] LABS: HIV-1/2 Ag & Ab Screen Negative (Negative)
--- NOTE | 2023-10-12 19:24 | INITIAL_ITS ---
Date of service: 10/12/23 Time of Service: 19:24 Care Management Initial Assmt Initial Assessment Reason for Hospitalization: Pneumonia and bacteremia Functional Status/Living Situation Patient Presentation: Nila was lying in bed when CM met with him. He did not immediately engage with CM but as the conversation continued he became more talkative. Nila shared that he is homeless. He has been staying in the [facility] but [facility] not been interested in staying at the [facility]. He has a 6 year old son that he has not seen in a while and shared that he hopes to get clean so that he can spend time with him. He and his son's mother remain on good terms. Nila has bacteremia with a gram positive organism, and may require [facility]. In discussing options for treatment, if it is determined that he needs the antibiotics, Nila stated that he would prefer to stay at [facility] as opposed to coming to the infusion center. Town of Residence: [facility] Resides with: Other (homeless) Significant Other/Family: Local Employment Status: Unemployed Instrumental Activities of Daily Living (ADLs): Independent Medications Medication Management: No Issues/Barriers identified Physical Functioning/Mobility Assistive Device: none Advance Directives Advance Directives: Do you have an Advance Directive: N 12/28/15 21:51 AD On File at [facility]: N 12/28/15 21:36 Date Asked 10/11/23 10/11/23 14:35 AD Date Reviewed COLST On File at [facility] COLST Date Scanned Code Status Resuscitation Status Full Code Portal Pt does not currently have a portal and education provided: No Portal Education: Other Insurance Coverage/Financial Issues Insurance: Medicaid ACO Member: No Care Team Visit Care Team Role Provider Type Unknown Unknown Primary Care Provider STAFF PHYSICIAN Shan Tello MD Emergency Provider [facility] STAFF PHYSICIAN Donal Guzman MD Admit Provider [facility] STAFF PHYSICIAN Attending Provider Discharge Potential Discharge Needs: PCP F/U Appt and Other (may need intermediate teacher IV antibiotics) Anticipated Barriers to Discharge: Medical Status Patient/Family Education Needs: Review discharge instructions, discuss Ask Me Three and Other (limitations, follow up plan) Transportation: [facility] All Active Problems (Updated 10/12/23 @ 16:46 by Luciano German MD) Gram-positive bacteremia (Acute) Cavitary pneumonia (Acute) Acute superficial venous thrombosis of both lower extremities (Acute) Opiate withdrawal (Acute) Left lower lobe pneumonia (Acute) Social History Smoking/Tobacco Use Status: Current every day Tobacco Type: cigarettes Tobacco: How many years used: 10 Smoking risk assessment performed?: Yes Alcohol Intake: never Drug use: Daily Substance use type: marijuana, crack/cocaine and heroin Details: Xylazine and fentanyl use earlier today 10/11/23. Housing: homeless Do you feel safe at home: Yes Do you feel safe in your relationship?: Yes SDOH(Care Management) Screening Will the Patient Participate in the Screening?: Yes Do you worry about having a steady place to live?: yes Problems where you live: lack of heat In the past 12 months, have you had to go without electric, gas, oil or water in your home?: yes Have you or anyone in your house had to go without enough food to eat?: no Has lack of transportation kept you from medical appointments or from doing things needed for daily living?: choose not to answer Has anyone in your support network made you feel unsafe for any reason?: no Health Related Social Needs Health related social needs: inadequate housing(Z59.1), housing instability, housed, with risk of homelessness(Z59.811) and material hardship(utilities)(Z59.87)
[2023-10-12 20:19] VITALS: BP 138/72; PULSE 60; RESP 16; TEMP 38.1; O2SAT 96
[2023-10-12 22:53] VITALS: BP 122/79; PULSE 104; RESP 18; TEMP 37; O2SAT 99
[2023-10-13] MEDS: Lactated Ringers 1,000 ML 100 ML IV (01:47)
[2023-10-13] MEDS: VANCOMYCIN/WATER (PEG) 750 MG/150 ML BAG 150 MG IVPB ×3 (01:49→17:56)
[2023-10-13 01:56] VITALS: BP 142/82; PULSE 66; RESP 18; TEMP 36.9; O2SAT 99
[2023-10-13] MEDS: Normal Saline Flush 10 ML SYR IVP ×2 (03:39→23:38)
[2023-10-13] MEDS: PIPERACILLIN/TAZO 3.375 GM in Normal Saline 50 ML IVPB ×4 (03:45→23:12)
[2023-10-13 08:17] VITALS: BP 148/94; PULSE 92; RESP 17; TEMP 36.9; O2SAT 98
--- NOTE | 2023-10-13 08:46 | PDOC.CMPRO ---
Date of service: 10/13/23 Time of Service: 08:46 Care Management Progress Note Progress Note Text Progress Note Text: S/O:Nila was lying in bed dozing when CM met with him. He was easily awakened with a gentle touch on his shoulder. Nila had requested assistance with providing information to [facility]. He shared that he wants to get sober to be able to re-unite with his son. CM provided him a release form, obtained his signature, and faxed it to [facility]. He understands that he tha not be able to go for a while as he is likely going to need prolonged treatment. Nila did state that he is feeling much, much better today as he is no longer withdrawing from the opiates. He said it was really painful A: Nila is a 28 year old man admitted on 10/11/23 with pneumonia Discharge Potential Discharge Needs: PCP F/U Appt, Surgical F/U Appt and Other (may need [facility]dc IV antibiotics) Anticipated Barriers to Discharge: Medical Status (? fdc IV antibiotics) Patient/Family Education Needs: Review discharge instructions, discuss Ask Me Three Transportation: RCT Plan: Nila will likely require 6 weeks of IV antibiotics to treat endocarditis. He has expressed a preference for remaining at [facility] for the treatment as he is homeless and does not have transportation to return to the infusion center. When he is medically stable he can be transitioned to SB-1 to complete his course of IV antibiotics. CM will follow and continue to support Nila and his discharge planning needs. SDOH(Care Management) Screening Will the Patient Participate in the Screening?: Yes Do you worry about having a steady place to live?: yes Problems where you live: lack of heat In the past 12 months, have you had to go without electric, gas, oil or water in your home?: yes Have you or anyone in your house had to go without enough food to eat?: no Has lack of transportation kept you from medical appointments or from doing things needed for daily living?: choose not to answer Has anyone in your support network made you feel unsafe for any reason?: no Health Related Social Needs Health related social needs: inadequate housing(Z59.1), housing instability, housed, with risk of homelessness(Z59.811) and material hardship(utilities)(Z59.87)
[2023-10-13] MEDS: Enoxaparin 60 MG/0.6 ML SYR SC ×2 (09:13→23:05)
[2023-10-13 09:33] LABS: Abs Immature Grans 0.12 10^3/uL (0.0-0.06); Absolute Basophil Count 0.05 10^3/uL (0.0-0.2); Basophils % 0.3 %; HCT 36.9 % (40.0-50.0); HGB 12.7 g/dL (13.5-17.5); Immature Grans % 0.7 %; Lymphocytes % 14.1 %; MCH 30.8 pg (27.0-33.0); MCHC 34.4 % (32.0-36.0); MCV 90 fL (80-95); MPV 8.7 fL (8.0-11.0); Monocytes % 5.3 %; Neutrophils % 79.6 %; Platelet Count 500 10^3/uL (130-400); RBC 4.12 10^6/uL (4.36-5.78); RDW 13.4 % (11.8-14.1); RDW-SD 44.1 fL
[2023-10-13 09:35] LABS: Absolute Lymphocyte Count 2.48 10^3/uL (1.2-3.4); Absolute Monocyte Count 0.93 10^3/uL (0.1-0.8); Absolute Neutrophil Count 14.01 10^3/uL (1.2-6.7)
[2023-10-13 09:48] LABS: ALT 41 U/L (16-63); AST 11 U/L (15-37); Albumin 2.5 g/dL (3.4-5.0); Alkaline Phosphatase 65 U/L (46-116); Anion Gap 7.7 mmol/L (3-11); BUN 11 mg/dL (7-18); Bilirubin, Total 0.3 mg/dL (0.2-1.0); CO2 31.3 mmol/L (21.0-32.0); CREATININE 0.8 mg/dL (0.70-1.30); Calcium 8.6 mg/dL (8.5-10.1); Chloride 102 mmol/L (98-107); Estimated GFR 122.86 (mL/min/1.73m2); Glucose 128 mg/dL (74-106); Sodium 141 mmol/L (136-145); Total Protein 7.3 g/dL (6.4-8.2)
[2023-10-13 09:50] LABS: Potassium 2.8 mmol/L (3.5-5.1)
--- NOTE | 2023-10-13 10:06 | W.NUTRFU ---
Date of service: 10/13/23 Time of Service: 10:06 Nutrition Note NOTE: pt admitted with PNA with abcesses on bilat legs and found to have gram-positive bacteremia, requiring long course of abx. Has history of opiate use. Pt reportedly eating fair to good lately - getting boost ONS due to poor appetite/intake beginning of admission. Weight looks stable over the last 4 years although lower BMI. Pt at risk for inconsistent intake due to substance abuse history and homelessness. Will continue boost BID on breakfast and dinner trays for optional nutrition support. Pt tolerating regular diet with normal consistencies. Will monitor for deleterious changes in nutrition status/ education needs Time Spent in Nutritional Counseling and Treatment: 0
--- NOTE | 2023-10-13 10:48 | W.PULMCON ---
General Date Of Service Date of service: 10/13/23 Time of Service: 10:49 Reason for Consult: Cavitary lung lesion Assessment and Plan Assessment and plan (1) Endocarditis: Status: Acute (2) Septic pulmonary embolism: Status: Acute (3) Septic embolism: Status: Acute (4) Opiate withdrawal: Status: Acute (5) DVT (deep venous thrombosis): Status: Chronic Assessment and plan: This is a 28 yo with opiate use disorder admitted for endocarditis. I think the cavitary lung lesion is a septic emboli, as are some of the other small nodules seen. I am suspicious of renal infarct as well after looking at the CT. There is no empyema or abscess present. The lesion should heal with time and antibiotic therapy. He will likely have a scar from this, but it should not affect his senior living pulmonary function. Although the read states no DVT, extension of clot into the common femoral is certainly a DVTso agree with anticoagulation, would would advise for head imaging to rule out cerebral septic emboli given the propensity for hemorrhage in these. Pulmonary septic emboli - continue with antibiotics as below - recommend repeat imaging 2 months after recovery from endocarditis - if non clearing blood cultures can consider repeat chest imaging to assess for progression of septic pulmonary emboli - D/C respiratory isolation DVT - agree with A/C, recommend head imaging to rule out cerebral septic emboli Endocarditis - agree with vancomycin - echo pending History of Present Illness Narrative: This is a 28 yo with a history of opiod use disorder admitted for a LLL cavitary pneumonia. There was a concern for endocarditis given the cavitary lung lesion, possible renal infarcts and later discovered MRSA bacteremia. He was also found to have extensive superficial thrombi bilaterally (although the report states no DVT there is mention of extension to the common femoral). He was placed on full dose AC but had not had a head imaging as of yet. He has a leukocytosis, normal lactate, appropriate kidney function and is on room air. There was a concern at some point for TB, however given the likelihood that this is septic emboli the respiratory isolation has been removed. Today he is feeling well. No pain or dyspnea. No current withdrawal symptoms. Review of Systems All systems reviewed & are unremarkable except as noted in HPI and below PFSH All Active Problems (Updated 10/13/23 @ 11:21 by Sol Humphreys MD) DVT (deep venous thrombosis) (Chronic) Septic embolism (Acute) Septic pulmonary embolism (Acute) Endocarditis (Acute) Gram-positive bacteremia (Acute) Cavitary pneumonia (Acute) Acute superficial venous thrombosis of both lower extremities (Acute) Opiate withdrawal (Acute) Left lower lobe pneumonia (Acute) Social History Smoking/Tobacco Use Status: Current every day Tobacco Type: cigarettes Tobacco: How many years used: 10 Smoking risk assessment performed?: Yes Alcohol Intake: never Drug use: Daily Substance use type: marijuana, crack/cocaine and heroin Details: Xylazine and fentanyl use earlier today 10/11/23. Housing: homeless Do you feel safe at home: Yes Do you feel safe in your relationship?: Yes Visit Medication and Allergies Active Medications Generic Name Dose Route Start Last Admin Trade Name Freq PRN Reason Stop Dose Admin Buprenorphine HCl 8 mg 10/12/23 20:00 10/13/23 09:13 Buprenorphine 8 Mg Sublingual Tablet SL 8 mg TID MIAH Administration Enoxaparin Sodium 60 mg 10/11/23 20:00 10/13/23 09:13 Enoxaparin 60 Mg/0.6 Ml Syr SC 60 mg Q12H MIAH Administration Piperacillin Sod/Tazobactam 50 mls @ 100 mls/hr 10/11/23 20:00 10/13/23 09:14 Sod 3.375 gm/ Sodium Chloride IVPB 100 mls/hr Q6H MIAH Administration Sodium Chloride 500 mls @ 0 mls/hr 10/12/23 08:30 Saline 500ml Bag IV DIRECTED PRN As Directed Vancomycin/PEG/NADA/Lysine/Water 750 mg in 150 mls @ 150 mls/hr 10/12/23 18:00 10/13/23 03:46 Vancocin Injection IVPB Infused Q8H MIAH Infusion Potassium Chloride/Sodium Chloride 1,000 mls @ 100 mls/hr 10/13/23 10:45 Kcl 20meq/0.45% Nacl IV INFUSION MIAH Potassium Chloride 10 meq in 100 mls @ 100 mls/hr 10/13/23 10:45 IVINF 10/13/23 14:44 Q1H MIAH IV Miscellaneous Supplies 1 each 10/12/23 08:30 Iv Access IV DIRECTED MIAH Nicotine 21 mg 10/12/23 08:30 10/13/23 09:14 Nicotine 21 Mg/24 Hr Patch TD Not Given DAILY MIAH Ondansetron HCl 4 mg 10/11/23 19:07 10/12/23 20:30 Ondansetron 4 Mg/2 Ml Vial IVP 4 mg Q4H PRN PRN Administration Prochlorperazine Edisylate 5 mg 10/12/23 16:27 Prochlorperazine 10 Mg/2 Ml Vial IVP Q4H PRN PRN Sodium Chloride 0 ml 10/12/23 08:30 10/13/23 03:39 Normal Saline Flush 10 Ml Syr IVP 10 ml PRN PRN Administration Tuberculin 5 tu 10/11/23 18:00 Tuberculin, Purified Protein 5 Tu/0.1 Ml Dose ID TODAY MIAH Allergies No Known Allergies Allergy (Unverified 10/11/23 14:41) Exam Narrative Exam Narrative: Gen: NAD, normal respiratory effort, thin HENT: PERRL Chest: No respiratory distress, normal appearance of chest, clear to auscultation bilaterally, no crackles or wheezes, normal inspiratory effort Heart: regular rate and rhythym, no murmurs, rubs or gallops Abdomen: Non-distended, soft, non tender Extremities: No clubbing, edema, cyanosis, there are several healing scabs on arms primarily due to picking Neuro: AAOx3 , non focal Psych: cooperative, appropriate mental affect Results Last Vital Signs Temp 36.9 C 10/13/23 08:17 Pulse 92 H 10/13/23 08:17 Resp 17 10/13/23 08:17 BP 148/94 H 10/13/23 08:17 Pulse Ox 98 10/13/23 08:17 Labs 10/13/23 08:56 10/13/23 08:56 Labs: Laboratory Results - last 24 hr 10/11/23 10/12/23 10/12/23 17:55 12:50 13:27 WBC 17.58 H RBC 5.84 H Hgb 17.6 H D Hct 52.6 H MCV 90 MCH 30.1 MCHC 33.5 RDW 13.4 Plt Count 382 MPV 8.9 Immature Gran % Neutrophils % Lymphocytes % Monocytes % Eosinophils % Basophils % Nucleated RBC % Absolute Neutrophils Absolute Lymphocytes Absolute Monocytes Absolute Eosinophils Absolute Basophils VBG Lactate 1.9 H Sodium Potassium Chloride Carbon Dioxide Anion Gap BUN Creatinine Est GFR (CKD-EPI 2020) Glucose Calcium Total Bilirubin AST ALT Alkaline Phosphatase Total Protein Albumin Random Vancomycin 12.5 HIV 1&2 Ag/Ab, 4th Gen Negative 10/13/23 08:56 WBC 17.60 H RBC 4.12 L Hgb 12.7 L D Hct 36.9 L MCV 90 MCH 30.8 MCHC 34.4 RDW 13.4 Plt Count 500 H MPV 8.7 Immature Gran % 0.7 Neutrophils % 79.6 Lymphocytes % 14.1 Monocytes % 5.3 Eosinophils % 0.0 Basophils % 0.3 Nucleated RBC % 0.0 Absolute Neutrophils 14.01 H Absolute Lymphocytes 2.48 Absolute Monocytes 0.93 H Absolute Eosinophils 0.00 Absolute Basophils 0.05 VBG Lactate Sodium 141 Potassium 2.8 L* Chloride 102 Carbon Dioxide 31.3 Anion Gap 7.7 BUN 11 Creatinine 0.8 Est GFR (CKD-EPI 2020) 122.86 Glucose 128 H Calcium 8.6 Total Bilirubin 0.3 AST 11 L ALT 41 Alkaline Phosphatase 65 Total Protein 7.3 Albumin 2.5 L Random Vancomycin HIV 1&2 Ag/Ab, 4th Gen
[2023-10-13] MEDS: POTASSIUM CHLORIDE 10 MEQ/100 ML BAG 100 MEQ IVINF ×4 (11:01→15:54)
[2023-10-13] MEDS: Potassium Chloride 10 MEQ CAPCR 40 MEQ PO (11:01)
[2023-10-13 11:41] LABS: TB Interpretation Negative (Negative)
[2023-10-13] MEDS: Omnipaque 350 MG/ML 100 ML BTL IJ ×2 (12:32→13:06)
[2023-10-13] MEDS: Normal Saline - Diluent 50 ML VIAL IJ ×2 (12:33→13:07)
--- NOTE | 2023-10-13 12:45 | DI.CT_ITS ---
Exam(s) CT BRAIN CTA EXAM: CT BRAIN CTA CLINICAL HISTORY: septic emboli. TECHNIQUE: Imaging Protocol: Axial CT angiography was performed with multi-slice acquisition and mu lti-planar and/or 3D reconstructions. CONTRAST MATERIAL: Intravenous: Omnipaque 350 contrast volume:170 mL COMPARISON: CT CT FACIAL W from 01/26/[address] CHEST PE ABD PELVIS W from 10/11/2023 FINDINGS: CT Head W/O: Ventricles and Extra axial spaces: Normal in size and morphology for the patient's age. Hemorrhage: None. Cerebral parenchyma: Normal. Midline shift: None. Brainstem/Cerebellum: Normal. Calvarium: Normal. Visualized Paranasal sinuses/Mastoids: Clear. Soft Tissues: Unremarkable. Enhancement: Unremarkable. Intracranial veins: No filling defects are seen in the visualized dural venous sinuses. CTA Brain W: Internal Carotid Arteries: No aneurysm, occlusion or significant stenosis. Anterior Cerebral Arteries: Right: No aneurysm, occlusion or significant stenosis. Left: No aneurysm, occlusion or significant stenosis. Middle Cerebral Arteries: Right: No aneurysm, occlusion or significant stenosis. Left: No aneurysm, occlusion or significant stenosis. Posterior cerebral Arteries: Right: No aneurysm, occlusion or significant stenosis. Left: No aneurysm, occlusion or significant stenosis. Vertebral Arteries: Right: No aneurysm, occlusion or significant stenosis. Left: No aneurysm, occlusion or significant stenosis. Basilar Artery: No aneurysm, occlusion or significant stenosis. IMPRESSION: 1. No evidence of large vessel occlusion or significant stenosis on the CT angiography of the head. 2. No acute intracranial process. No enhancing intracranial masses are seen to suggest an abscess. 3. No evidence of a dural venous sinus thrombosis. If there is continued clinical concern, an MRV ma y be obtained for further evaluation. RADIATION DOSE DELIVERED: 1,916.52mGy.cm Total DLP DATA REPOSITORY: All CT scans at this facility are submitted to the National Radiology Data Registry (NRDR) Dose Index Registry (DIR) with the [employer] (ACR). RADIATION OPTIMIZATION: All CT scans at this facility use at least one of these dose optimization te chniques: automated exposure control; mA and/or kV adjustment per patient size (includes targeted exa ms where dose is matched to clinical indication); or iterative reconstruction.
--- NOTE | 2023-10-13 13:50 | W.PM.PROGNOT ---
Date of Service Date of service: 10/13/23 Time of Service: 13:50 Assessment and Plan Assessment and plan (1) Gram-positive bacteremia: Status: Acute Assessment and plan: likely Staph bacteremia, MRSA two out of two sets from admission, repeat blood cultures ordered but not able to be obtained. Echo w/out vegetation or significant valvulopathy. patient will need 6 weeks of antibiotics. I will discuss w/ I.D. choice of antibiotics but w/ lung cavity/pneumonia daptomycin is off the table therefore either vancomcyin which will require multiple doses a day (not feasible for outpatient unless we can get home health to deliver and put him on a continuous infusion pump or possible iv Zyvox. I will talk w/ I.D. tomorrow. (2) Cavitary pneumonia: Status: Acute Assessment and plan: pulmonary consult obtained w/ Dr. Humphreys, she indicated that no need for any intervention, no evidence for abscess, CT head done to rule out cerebral septic emboli and none were seen. Echo was done and did not show any overt vegetations and no significant valvulopathy. will repeat echo in 6 weeks after completion of iv antibiotics. Unlikely TB, Gold Quantiferon test is pending but I have taken him off respiratory precautions given that he has MRSA bactermia. (3) Acute superficial venous thrombosis of both lower extremities: Status: Acute Assessment and plan: DVT involves his CFV and proximal GSV bilaterally so technically this ought to be treated as DVT. He was put on lovenox 1 mg/kg SC q12h last night. will transition to apixaban once we are sure he will not need a procedure. (4) Opiate withdrawal: Status: Acute Assessment and plan: changes suboxone to buprenorphine. Will give 8 mg SL now and repeat TID, also give compazine for nausea and vomiting. Subjective Subjective Patient reports: no new complaints and feels better Exam Narrative Exam Narrative: Nila states he feels better today, he is afebrile He is lying in bed watching TV, no acute distress, not dyspneic Lungs: clear Heart: regular, mildly tachycardic rate 98 to 100, no murmur Objective Last Vital Signs Temp 36.9 C 10/13/23 08:17 Pulse 92 H 10/13/23 08:17 Resp 17 10/13/23 08:17 BP 148/94 H 10/13/23 08:17 Pulse Ox 98 10/13/23 08:17 Laboratory Results - last 24 hr 10/11/23 10/12/23 10/13/23 17:55 13:27 08:56 WBC 17.60 H RBC 4.12 L Hgb 12.7 L D Hct 36.9 L MCV 90 MCH 30.8 MCHC 34.4 RDW 13.4 Plt Count 500 H MPV 8.7 Immature Gran % 0.7 Neutrophils % 79.6 Lymphocytes % 14.1 Monocytes % 5.3 Eosinophils % 0.0 Basophils % 0.3 Nucleated RBC % 0.0 Absolute Neutrophils 14.01 H Absolute Lymphocytes 2.48 Absolute Monocytes 0.93 H Absolute Eosinophils 0.00 Absolute Basophils 0.05 Sodium 141 Potassium 2.8 L* Chloride 102 Carbon Dioxide 31.3 Anion Gap 7.7 BUN 11 Creatinine 0.8 Est GFR (CKD-EPI 2020) 122.86 Glucose 128 H Calcium 8.6 Total Bilirubin 0.3 AST 11 L ALT 41 Alkaline Phosphatase 65 Total Protein 7.3 Albumin 2.5 L Random Vancomycin 12.5 HIV 1&2 Ag/Ab, 4th Gen Negative TB Test Ag - Nil 1 0.00 TB Test Ag - Nil 2 0.00 TB Test (QFT) Interp Negative Time Spent with Patient Time Spent with Patient: 25-34 minutes Time was spent: preparing to see the patient(eg.review tests), ordering medications,tests, procedures, referring, communicating with other health small animal caretaker (Dr. Humphreys), indepentently interpreting results, counseling the patient and care coordination
--- NOTE | 2023-10-13 13:59 | CHAPLAIN ---
I had a brief visit with Nila. He was on the phone but listened to me introduce myself, explain my role and offers support. He said he needed a shower and that the showers were cold. I suggested he check in with his nurse or REFUND SPECIALIST about that.
[2023-10-13 16:23] VITALS: BP 107/53; PULSE 83; RESP 20; TEMP 37.8; O2SAT 100
[2023-10-13 20:45] VITALS: BP 122/90; PULSE 60; RESP 16; TEMP 36.6; O2SAT 97
[2023-10-13] MEDS: Ondansetron 4 MG/2 ML VIAL IVP (23:37)
[2023-10-14] MEDS: POTASSIUM CHLORIDE/0.45% NACL 1,000 ML 100 MEQ IV (00:48)
[2023-10-14] MEDS: VANCOMYCIN/WATER (PEG) 750 MG/150 ML BAG 150 MG IVPB ×3 (02:48→17:52)
[2023-10-14] MEDS: PIPERACILLIN/TAZO 3.375 GM in Normal Saline 50 ML IVPB ×4 (04:05→20:32)
[2023-10-14] MEDS: Acetaminophen 500 MG TAB 1000 MG PO ×2 (06:28→20:24)
[2023-10-14 07:51] VITALS: BP 138/87; PULSE 60; RESP 18; TEMP 37.3; O2SAT 98
[2023-10-14] MEDS: Nicotine 21 MG/24 HR PATCH TD (08:07)
[2023-10-14] MEDS: Enoxaparin 60 MG/0.6 ML SYR SC ×2 (08:09→20:24)
[2023-10-14] MEDS: Normal Saline Flush 10 ML SYR IVP ×2 (08:09→20:24)
[2023-10-14 15:42] VITALS: BP 124/74; PULSE 89; RESP 18; TEMP 37.1; O2SAT 100
--- NOTE | 2023-10-14 17:25 | CMPROGNOTE_ITS ---
Date of service: 10/14/23 Time of Service: 17:26 Care Management Progress Note Progress Note Text Progress Note Text: CM did not meet with Nila today, he remains on precautions and per MD awaiting culture and sensitivities to inform treatment plan; anticipate possible L/T course of IV ABX; anticipate SWB1. Nila intends on discharging to [facility] when medically stable, after he has completed treatment for endocarditis. SDOH(Care Management) Screening Will the Patient Participate in the Screening?: Yes Do you worry about having a steady place to live?: yes Problems where you live: lack of heat In the past 12 months, have you had to go without electric, gas, oil or water in your home?: yes Have you or anyone in your house had to go without enough food to eat?: no Has lack of transportation kept you from medical appointments or from doing things needed for daily living?: choose not to answer Has anyone in your support network made you feel unsafe for any reason?: no Health Related Social Needs Health related social needs: inadequate housing(Z59.1), housing instability, housed, with risk of homelessness(Z59.811) and material hardship(utilities)(Z59.87)
[2023-10-14 18:16] VITALS: BP 126/69; PULSE 106; RESP 16; TEMP 37.6; O2SAT 97
--- NOTE | 2023-10-14 18:29 | NUR.NOTE ---
Nursing Note: Patient called this RN with complaints of feeling his heart is pounding, headache 2/10, and sharp right sided chest pain 3/10. Vitals were checked, and Dr. German was notified. Will continue to monitor. No changes heard on auscultation.
[2023-10-14 20:11] LABS: Abs Immature Grans 0.11 10^3/uL (0.0-0.06); Absolute Basophil Count 0.05 10^3/uL (0.0-0.2); Absolute Eosinophil Count 0.08 10^3/uL (0.0-0.7); Absolute Monocyte Count 0.84 10^3/uL (0.1-0.8); Absolute Neutrophil Count 9.11 10^3/uL (1.2-6.7); Basophils % 0.4 %; Eosinophils % 0.6 %; HCT 41.5 % (40.0-50.0); HGB 13.9 g/dL (13.5-17.5); Immature Grans % 0.8 %; Lymphocytes % 24.7 %; MCHC 33.5 % (32.0-36.0); MCV 90 fL (80-95); MPV 8.4 fL (8.0-11.0); Monocytes % 6.2 %; Neutrophils % 67.3 %; Platelet Count 513 10^3/uL (130-400); RBC 4.63 10^6/uL (4.36-5.78); RDW 13.2 % (11.8-14.1); RDW-SD 43.4 fL; WBC 13.54 10^3/uL (4.4-10.8)
[2023-10-14 20:13] LABS: Absolute Lymphocyte Count 3.34 10^3/uL (1.2-3.4)
[2023-10-14 20:28] LABS: ALT 44 U/L (16-63); AST 18 U/L (15-37); Albumin 2.6 g/dL (3.4-5.0); Alkaline Phosphatase 75 U/L (46-116); BUN 8 mg/dL (7-18); Bilirubin, Total 0.3 mg/dL (0.2-1.0); CREATININE 0.7 mg/dL (0.70-1.30); Chloride 102 mmol/L (98-107); Estimated GFR 127.91 (mL/min/1.73m2); Glucose 117 mg/dL (74-106); Sodium 138 mmol/L (136-145); Total Protein 7.2 g/dL (6.4-8.2)
[2023-10-14 20:30] LABS: Potassium 2.9 mmol/L (3.5-5.1)
[2023-10-14] MEDS: POTASSIUM CHLORIDE 20 MEQ/100 ML BAG 50 MEQ IVINF (21:24)
--- NOTE | 2023-10-14 23:02 | W.PM.PROGNOT ---
Date of Service Date of service: 10/14/23 Time of Service: 18:00 Assessment and Plan Assessment and plan (1) Gram-positive bacteremia: Status: Acute Assessment and plan: MRSA bacteremia with no evidence of vegetations on his echocardiogram and no evidence of cerebral septic emboli. Because he has a cavitary pneumonia he is not a candidate for daptomycin. He is currently on vancomycin. We could consider treatment with Zyvox however the patient wants to go on Suboxone therapy which would be a contraindication to concomitant use of Zyvox due to increased risk for serotonin syndrome. Once his blood cultures are negative we can talk about placement of a PICC line for prolonged IV antibiotic treatment with vancomycin. Patient stating that he wants to go home and wants to take oral antibiotics. I told him there is no real good thorough treatment with oral antibiotics we could put him on oral doxycycline but this would be suboptimal treatment he runs a risk of antibiotic failure and possible development of endocarditis. (2) Cavitary pneumonia: Status: Acute (3) Acute superficial venous thrombosis of both lower extremities: Status: Acute Assessment and plan: Currently on Lovenox at 1 mg/kg every 12 hours. We could transition him over to apixaban for outpatient treatment (4) Opiate withdrawal: Status: Acute Assessment and plan: No longer showing signs of opiate withdrawal. He is currently on buprenorphine 8 mg sublingual TID. He has had no further nausea or vomiting and overall feels much improved. Subjective Subjective Interval history since last seen: Nila refuses lab draws this morning. He states that he is tired of getting stuck with needles. Is rather odd since he habitually injects himself with IV drugs including heroin and cocaine. Nevertheless he did allow me to attempt lab draw with ultrasound guidance and I was unsuccessful. So he did allow a smoke jumper supervisor come up from the lab to draw his labs. I spent time talking with Nila explaining to him that he has MRSA in his bloodstream with septic emboli to his lungs and bilateral DVTs and needs anticoagulation. I am waiting for results of his repeat blood cultures to determine whether he is ready to be discharged and can go on a prolonged course of outpatient IV antibiotics. Exam Narrative Exam Narrative: Patient seems to be calm not showing any signs of acute withdrawal not in any pain Lungs are clear Heart is regular rate and rhythm without murmur rub or gallop Abdomen scaphoid soft and nontender Objective Last Vital Signs Temp 37.6 C H 10/14/23 18:16 Pulse 106 H 10/14/23 18:16 Resp 16 10/14/23 18:16 BP 126/69 10/14/23 18:16 Pulse Ox 97 10/14/23 18:16 Laboratory Results - last 24 hr 10/14/23 19:35 WBC 13.54 H RBC 4.63 Hgb 13.9 Hct 41.5 MCV 90 MCH 30.0 MCHC 33.5 RDW 13.2 Plt Count 513 H MPV 8.4 Immature Gran % 0.8 Neutrophils % 67.3 Lymphocytes % 24.7 Monocytes % 6.2 Eosinophils % 0.6 Basophils % 0.4 Nucleated RBC % 0.0 Absolute Neutrophils 9.11 H Absolute Lymphocytes 3.34 Absolute Monocytes 0.84 H Absolute Eosinophils 0.08 Absolute Basophils 0.05 Sodium 138 Potassium 2.9 L* Chloride 102 Carbon Dioxide 26.0 Anion Gap 10.0 BUN 8 Creatinine 0.7 Est GFR (CKD-EPI 2020) 127.91 Glucose 117 H Calcium 8.0 L Total Bilirubin 0.3 AST 18 ALT 44 Alkaline Phosphatase 75 Total Protein 7.2 Albumin 2.6 L Time Spent with Patient Time Spent with Patient: 35-49 minutes Time was spent: preparing to see the patient(eg.review tests), ordering medications,tests, procedures, referring, communicating with other health healthcare network pricing consultant (Including calls to infectious disease service at [facility]), indepentently interpreting results, counseling the patient and care coordination
--- NOTE | 2023-10-14 23:58 | NUR.NOTE ---
AMA Note At approximately 23:30 pt informed me of his request to leave [place]. Upon his request to leave [place], I did remind him of his active blood infection of MRSA which will need treatment for antibiotics, I explained to him we are givng him Zosyn and vancomycin for this treatment. I did inform him that this evening his electrolytes potassium was critically low. I did explain he does have active thrombus or blood clotts in his lower extremities bilaterally he is getting enoxaparin an anticoagulant or blood thinner to treat the blood clots. Despite my recommendations to stay here at [facility] the patient wished to leave. Clinical Chief Controller Tower, Sonja HAMLIN also came down to inform the patient of risks associated with leaving. Despite recommendations to stay at the hospital by Clinical Coordinator the patient wished to proceed with leaving. I did discontinue his left mid forearm 20g IV prior to his departure, which he departed at [id number]. Nursing Note:
--- NOTE | 2023-10-15 15:01 | W.PM.DS.N ---
Date of service: 10/14/23 Time of Service: 23:45 DS: Diagnosis Discharge Diagnosis (1) Gram-positive bacteremia: Start date: 10/11/23 Status: Acute Asessment and Plan: Patient on vancomycin and signed out AMA. (2) Cavitary pneumonia: Start date: 10/11/23 Status: Acute Asessment and Plan: Complication of IV drug use the patient needing to be seen by ID and long-term IV antibiotic therapy but refusing to sign out AMA. (3) Acute superficial venous thrombosis of both lower extremities: Start date: 10/11/23 Status: Acute Asessment and Plan: Needs follow-up and treatment with patient signing out AMA. (4) Opiate withdrawal: Start date: 10/11/23 Status: Acute Asessment and Plan: Patient will most likely return to IV drug use but should see outpatient therapy. Discharge Plan Disposition Patient Disposition: Eloped Condition: Serious Discharge Details Reason For Visit: Pneumonia, Phlebitis Admit Date/Time: 10/11/23 19:07 Admit Provider: Donal Guzman Attending Provider: Donal Guzman Primary Care Provider: Unknown,Unknown Hospital Course Hospital Course: This is a 28-year-old IV drug user who presented with fever and respiratory symptoms being diagnosed with left lower lobe pneumonia which appear to have some cavitation and was initiated on vancomycin. ID of the blood cultures was MRSA and the patient was to be converted to a 6-week course of IV antibiotic therapy because of IV drug use. There was no evidence of cavitation in the brain but there was some cavitation of the left lower lobe pneumonia. Patient had difficult IV access and refused lab frequently also refusing repeat blood cultures. He will need negative blood cultures to start the 6-week period of antibiotic therapy. was discussing alternative therapies with ID at [facility] and possible oral regimen if patient did not want IV therapy. Patient was uncooperative with treatment having hypokalemia being treated but not aggressively because of lack of follow-up labs. The time of patient's signing out AMA, he was to have lab and stated he would go home and have his family take him to [facility] for treatment. He has no connection to [facility]. He was not given antibiotic therapy at discharge. He also had DVTs lower extremities which were been treated with IV Lovenox but was not transition to Eliquis which should be done as an outpatient. Patient left AMA without any prescriptions but will be going to [facility] by his report at discharge.. He has high risk of complications and takes responsibility for his decision making. He has not on Suboxone chronically as an outpatient but should see medical care to help stabilize his chaotic life. He is a full code. Home Meds and New Rx's Prescriptions: No Action No Known Home Meds Discharge Instructions Activity:: Activity as Tolerated Equipment/Supplies:: No Equipment Needed Diet:: As Tolerated Discharge Orders Discharge Orders: Discharge Order (Routine); Ordered 10/14/23 Ordered By: Donal Martínez Discharge Data Discharge Date/Time-TO BE ENTERED AT DEPARTURE: 10/14/23 23:58 DS: Summary Summary Time spent discussing smoking cessation with patient: 3 to 10 minutes Time Spent with Patient providing and/or coordinating discharge services: Less than 30 minutes Specific discharge activities: Reviewing records, patient left AMA Status at Discharge Functional status at discharge: independent ambulation Overall status at discharge: patient is not back to baseline Mental Status: mental status grossly normal Speech and Movement: speech and movement normal Mood: labile mood Affect: labile affect Quality:SDOH Health Related Social Needs: Health related social needs inadequate housing, risk of homeless, material hardship Exam Narrative Exam Narrative: Not performed with patient leaving AMA. Psych Mental Status: mental status grossly normal Speech and Movement: speech and movement normal Mood: labile mood Affect: labile affect DS: Data Vitals/I&O Vitals and I&O: Vital Signs Temperature 37.6 C H 10/14/23 18:16 Temperature Source Temporal Artery Scan 10/14/23 18:16 Pulse 106 H 10/14/23 18:16 Pulse Rhythm Regular 10/14/23 20:50 Pulse 102 H 10/11/23 19:50 Respiratory Rate 16 10/14/23 18:16 Respiratory Effort Normal 10/14/23 20:50 Respiratory Depth Normal 10/14/23 20:50 Respiratory Pattern Normal 10/14/23 20:50 Blood Pressure 126/69 10/14/23 18:16 Blood Pressure Mean 89 10/11/23 19:16 Blood Pressure Position Sitting 10/11/23 14:24 Pulse Oximetry 97 10/14/23 18:16 Oxygen Delivery Method Room Air 10/14/23 18:16 Oxygen Flow Rate 0 10/14/23 18:16 Pain Level 0 10/14/23 07:28 Intake & Output 10/14/23 10/15/23 10/15/23 23:59 11:59 23:59 Intake Total 572 / 872 Balance 572 / 872 Intake: IV 350 / 650 Oral 222 / 222 Other: Urine Appearance Clear Comment pt voids independently in room, no hat, unclear amount or color. Data Completed and Pending Completed studies during hospitalization [Text1]: CT of the chest/abdomen/pelvis, head CTA, echocardiogram Labs on day of discharge: Labs from last 24 hours 10/15/23 10/14/23 05:35 19:35 WBC 13.54 H RBC 4.63 Hgb 13.9 Hct 41.5 MCV 90 MCH 30.0 MCHC 33.5 RDW 13.2 Plt Count 513 H MPV 8.4 Immature Gran % 0.8 Neutrophils % 67.3 Lymphocytes % 24.7 Monocytes % 6.2 Eosinophils % 0.6 Basophils % 0.4 Nucleated RBC % 0.0 Absolute Neutrophils 9.11 H Absolute Lymphocytes 3.34 Absolute Monocytes 0.84 H Absolute Eosinophils 0.08 Absolute Basophils 0.05 Sodium Cancelled 138 Potassium Cancelled 2.9 L* Chloride Cancelled 102 Carbon Dioxide Cancelled 26.0 Anion Gap Cancelled 10.0 BUN Cancelled 8 Creatinine Cancelled 0.7 Est GFR (CKD-EPI 2020) Cancelled 127.91 Glucose Cancelled 117 H Calcium Cancelled 8.0 L Total Bilirubin 0.3 AST 18 ALT 44 Alkaline Phosphatase 75 Total Protein 7.2 Albumin 2.6 L 10/14/23 19:35 Blood Blood Culture - Pending Preliminary micro results at discharge 10/13/23 20:10 Blood Culture - Preliminary Blood NO GROWTH 24 HOURS 10/13/23 20:00 Blood Culture - Preliminary Blood NO GROWTH 24 HOURS 10/14/23 19:35 Blood Culture - Pending Blood PFSH All Active Problems DVT (deep venous thrombosis) (Chronic) Septic embolism (Acute) Septic pulmonary embolism (Acute) Endocarditis (Acute) Gram-positive bacteremia (Acute) Cavitary pneumonia (Acute) Acute superficial venous thrombosis of both lower extremities (Acute) Opiate withdrawal (Acute) Left lower lobe pneumonia (Acute) Social History Smoking/Tobacco Use Status: Current every day Tobacco Type: cigarettes Tobacco: How many years used: 10 Smoking risk assessment performed?: Yes Alcohol Intake: never Drug use: Daily Substance use type: marijuana, crack/cocaine and heroin Details: Xylazine and fentanyl use earlier today 10/11/23. Housing: homeless Do you feel safe at home: Yes Do you feel safe in your relationship?: Yes Time Spent with Patient Time Spent with Patient: <45 minutes Time was spent: indepentently interpreting results, care coordination and other (Patient left AMA without being seen. Review of chart.)
== END 2023-10-14 23:58 | disposition left against medical advice (07) | DRG 175 ==
LOC: ER 19:18 → MS 20:13
PROVIDERS: Internal Medicine; Admitting Provider General Practice; Emergency Provider Emergency Medicine; Visit Provider General Practice
DX: I26.90 Septic pulmonary embolism without acute cor pulmonale (principal); J18.8 Other pneumonia, unspecified organism; R78.81 Bacteremia; I82.413 Acute embolism and thrombosis of femoral vein, bilateral; I82.4Y3 Acute embolism and thrombosis of unspecified deep veins of proximal lower extremity, bilateral; F11.13 Opioid abuse with withdrawal; F17.210 Nicotine dependence, cigarettes, uncomplicated; F14.10 Cocaine abuse, uncomplicated; B95.62 Methicillin resistant Staphylococcus aureus infection as the cause of diseases classified elsewhere
CPT/HCPCS: 00123; 36415; 36416; 70496; 71275; 74177; 80048; 80053; 85027; 87040; 87077; 87389; 93005; 96365; 96367; 96375; 96376; 99291; 36410; 80202; 81003; 83605; 84132; 84484; 85025; 86480; 87186; 93010; 93306; 93970; 99222; 99231; 99232; 99238; J0780; J1650; J2405; J2543; J3010; J3370; J3372; J3480; J3490

== ENCOUNTER 2024-12-13 11:08 | Observation (INO) | payer MEDICAID, SELFPAY ==
[2024-12-13] VITALS (38 sets, daily range): BP systolic 113–160; BP diastolic 64–114; PULSE 62–116; RESP 10–20; TEMP 36.1–36.9; O2SAT 83–100
--- NOTE | 2024-12-13 10:45 | RT.EKG_ITS ---
APPROVED REPORT Exam: Resting ECG Reason for Exam: Overdose Patient Location: E HR:109 bpm ECG Measurements Heart Rate 109 AXIS NM 161 P 56 QRSd 99 QRS 77 QT 346 T -20 QTc 466 Conclusion Sinus tachycardia...rate> 99
--- NOTE | 2024-12-13 11:15 | DI.RAD_ITS ---
Exam(s) XR STERNUM EXAM: XR STERNUM h CLINICAL HISTORY: chest pain post cpr. TECHNIQUE: 2D digital imaging was performed. COMPARISON: CR XR CHEST 2V PA LATERAL from 12/13/2024 FINDINGS: 3 views There is no evidence of obvious sternal fracture. IMPRESSION: No obvious sternal fracture. DATA REPOSITORY: RADIATION DOSE DELIVERED:
--- NOTE | 2024-12-13 11:15 | DI.RAD_ITS ---
Exam(s) XR CHEST 2V PA LATERAL EXAM: XR CHEST 2V PA LATERAL CLINICAL HISTORY: chest pain post cpr. TECHNIQUE: 2D digital imaging was performed. COMPARISON: CR,XR XR PORTABLE CHEST AP from 04/15/2020 FINDINGS: 2 views: Heart size is normal. The mediastinum is not widened. Lungs are clear. No infiltrates nor pleural effusions. IMPRESSION: No acute pulmonary findings. DATA REPOSITORY: RADIATION DOSE DELIVERED:
[2024-12-13 11:39] LABS: Abs Immature Grans 0.21 10^3/uL (0.0-0.06); HCT 49.4 % (40.0-50.0); HGB 17.1 g/dL (13.5-17.5); Immature Grans % 1.7 %; MCH 31.5 pg (27.0-33.0); MCHC 34.6 % (32.0-36.0); MCV 91 fL (80-95); MPV 9.1 fL (8.0-11.0); Platelet Count 323 10^3/uL (130-400); RBC 5.42 10^6/uL (4.36-5.78); RDW 12.6 % (11.8-14.1); RDW-SD 42.1 fL; WBC 12.08 10^3/uL (4.4-10.8)
[2024-12-13 11:55] LABS: ALT 423 U/L (16-63); AST 335 U/L (15-37); Albumin 4.8 g/dL (3.4-5.0); Alkaline Phosphatase 133 U/L (46-116); Anion Gap 9.3 mmol/L (3-11); BUN 9 mg/dL (7-18); Bilirubin, Total 0.6 mg/dL (0.2-1.0); CO2 31.7 mmol/L (21.0-32.0); Calcium 9.0 mg/dL (8.5-10.1); Chloride 97 mmol/L (98-107); Estimated GFR 75.79 (mL/min/1.73m2); Glucose 204 mg/dL (74-106); Magnesium 2.2 mg/dL (1.8-2.4); Potassium 3.0 mmol/L (3.5-5.1); Sodium 138 mmol/L (136-145); Total Protein 9.7 g/dL (6.4-8.2); Troponin I 29 ng/L (<or=76)
[2024-12-13 11:58] LABS: Salicylate < 2.8 mg/dL (<2.8)
[2024-12-13 12:00] LABS: Acetaminophen < 2 ug/mL (10-30)
[2024-12-13] MEDS: Ondansetron 4 MG/2 ML VIAL IVP (12:15)
--- NOTE | 2024-12-13 12:31 | ED.GENADUL_ITS ---
Discharge Plan Disposition Patient Disposition: Admit to [facility] Condition: Serious Discharge Details Clinical Impression: Opioid overdose, Respiratory arrest, Acute hypokalemia, Abnormal transaminases, Hypertension Admit Date/Time: 12/13/24 12:32 Admit Provider: Troy Garcia Attending Provider: Troy Garcia Primary Care Provider: Unknown,Unknown ED Provider: Aki Salazar Discharge Data Discharge Date/Time-TO BE ENTERED AT DEPARTURE: 12/13/24 14:34 HPI General Mode of arrival: EMS . Date/Time Provider Initiated Documentation: 12/13/24 11:26 . Limitations to Documentation: no limitations . Information obtained by: patient and EMS . HPI Narrative: HISTORY OF PRESENT ILLNESS 29-year-old male with opioid use disorder and IV drug use presenting with overdose. Found unresponsive by partner around 1000 hours, bystander CPR for 20 minutes before EMS arrival. EMS provided respiratory support, established IO line, administered naloxone 2 mg IO. Patient responded quickly, now awake, alert, and complaining of chest pain from CPR. Symptoms onset this morning when found unresponsive. Chest pain attributed to CPR, mild nausea, and arm soreness attributed to IO. Incident triggered by intravenous fentanyl use mistaken for cocaine. Last opioid use nearly a year ago, no recent use or dependence. Hospitalized in 09/2024 for Gram-positive bacteremia, cavitary pneumonia, and opiate withdrawal. Left AMA and then sought care at [facility]. Completed treatment for MRSA and bacteremia at [facility].. Related Data Home Medications ?Medication ?Instructions ?Recorded ?Confirmed Unknown [No Known Home Meds] 10/11/23 0 12/13/24 Allergies Allergy/AdvReac Type Severity Reaction Status Date / Time No Known Allergies Allergy Unverified 12/13/24 11:18 General Stated Complaint: OD/Poison YESSY: 2 Review of Systems All systems reviewed & are unremarkable except as noted in HPI and below Exam Const General: cooperative and no acute distress [facility] Head: normocephalic and atraumatic Mouth: moist mucous membranes Eyes Conjunctivae: normal conjunctivae Sclera: normal sclerae Neck Neck: trachea midline and supple Chest Chest: no crepitus and tenderness sternum Resp Auscultation: clear to auscultation bilaterally, no rales, no rhonchi and no wheezes Cardio Rate: regular rate and not tachycardic Rhythm: regular rhythm GI Palpation: soft, not firm, no guarding, no masses, not rigid and nontender Neuro General: patient alert, patient awake, patient oriented x3 and tone normal Extrem General: no edema Psych Appearance: grossly normal Mental Status: mental status grossly normal Course Vital Signs Vital signs: Vital Signs Temperature 36.8 C 12/13/24 11:10 Pulse 108 H 12/13/24 11:10 Respiratory Rate 15 12/13/24 11:10 Blood Pressure 160/114 H 12/13/24 11:10 Pulse Oximetry 96 12/13/24 11:10 Temperature 36.8 C 12/13/24 11:10 Temperature Source Oral 12/13/24 11:10 Pulse 104 H 12/13/24 12:00 Pulse 104 H 12/13/24 12:00 Respiratory Rate 15 12/13/24 12:00 Respiratory Effort Normal 12/13/24 11:40 Respiratory Depth Normal 12/13/24 11:40 Blood Pressure 160/114 H 12/13/24 11:13 Blood Pressure Mean 128 12/13/24 11:13 Pulse Oximetry 93 12/13/24 12:00 Oxygen Delivery Method Room Air 12/13/24 11:10 Oxygen Flow Rate 0 12/13/24 11:10 Pain Level 7 12/13/24 11:10 Lab/Test Results Lab/Test Results: Laboratory Tests Range/Units 12/13/24 11:27 WBC (4.4-10.8) 10^3/uL 12.08 H RBC (4.36-5.78) 10^6/uL 5.42 Hgb (13.5-17.5) g/dL 17.1 Hct (40.0-50.0) % 49.4 MCV (80-95) fL 91 MCH (27.0-33.0) pg 31.5 MCHC (32.0-36.0) % 34.6 RDW (11.8-14.1) % 12.6 Plt Count (130-400) 10^3/uL 323 MPV (8.0-11.0) fL 9.1 Immature Gran % % 1.7 Neutrophils % % 79.0 Lymphocytes % % 14.2 Monocytes % % 3.9 Eosinophils % % 0.8 Basophils % % 0.4 Nucleated RBC % (0.0-0.3) % 0.0 Absolute Neutrophils (1.2-6.7) 10^3/uL 9.54 H Absolute Lymphocytes (1.2-3.4) 10^3/uL 1.72 Absolute Monocytes (0.1-0.8) 10^3/uL 0.47 Absolute Eosinophils (0.0-0.7) 10^3/uL 0.10 Absolute Basophils (0.0-0.2) 10^3/uL 0.05 Sodium (136-145) mmol/L 138 Potassium (3.5-5.1) mmol/L 3.0 L Chloride (98-107) mmol/L 97 L Carbon Dioxide (21.0-32.0) mmol/L 31.7 Anion Gap (3-11) mmol/L 9.3 BUN (7-18) mg/dL 9 Creatinine (0.70-1.30) mg/dL 1.3 Est GFR (CKD-EPI 2020) (mL/min/1.73m2) 75.79 Glucose (74-106) mg/dL 204 H Calcium (8.5-10.1) mg/dL 9.0 Magnesium (1.8-2.4) mg/dL 2.2 Total Bilirubin (0.2-1.0) mg/dL 0.6 AST (15-37) U/L 335 H ALT (16-63) U/L 423 H Alkaline Phosphatase (46-116) U/L 133 H Troponin I (<or=76) ng/L 29 Total Protein (6.4-8.2) g/dL 9.7 H Albumin (3.4-5.0) g/dL 4.8 Salicylates (<2.8) mg/dL < 2.8 Acetaminophen (10-30) ug/mL < 2 Ethyl Alcohol (<10) mg/dL < 3.0 Medical Decision Making ASSESSMENT AND PLAN Initial Assessment: 29-year-old male with opioid use disorder, IV drug use, hospitalized and treated at [facility] in October for Gram-positive bacteremia, cavitary pneumonia. Found unresponsive, received CPR for 20 minutes, responded to naloxone 2 mg IO. Complains of chest pain from CPR. Differential Diagnosis: - Opioid overdose: History of opioid use disorder and IV drug use. Naloxone response. Hospitalize for monitoring. - Cardiac arrest: Risk due to unresponsiveness and CPR. Hospitalize for cardiac monitoring. - Transaminitis: Acute, acetaminophen level normal. Monitor liver function. Repeat acetaminophen level at 3-hour. Hepatitis panel sent. ED Course: - Labs reviewed, transaminitis, acetaminophen level normal, leukocytosis, initial troponin negative. - Reassessed 90 minutes post naloxone, stable, mentating well. - Potassium 20 mEq IV and 20 mEq orally administered for low potassium (3.0). - Notified by nursing the patient more drowsy. Patient saturating well. Suspect he is metabolize naloxone and now still having opioid overdose. I will give additional naloxone intranasally. 1 mg to be administered initially. Final Assessment: Patient found unresponsive, required CPR and naloxone. Labs reviewed, transaminitis, leukocytosis, low potassium noted. Stable post naloxone. Clinical Impression: - Opioid overdose - Cardiac arrest - Hepatitis C - Transaminitis - Leukocytosis Disposition: - Admission for monitoring and cardiac monitoring. - I spoke with Dr. Garcia, discussed ED presentation course, he will admit the patient. Patient Education: Risks of leaving against medical advice, including potential loss of consciousness as naloxone wears off. This document was written with the assistance of [employer]. The patient consented to its use. Lab Data Lab results reviewed: Yes I reviewed the patient's lab results. Quality:SDOH Health Related Social Needs: Health related social needs inadequate housing food in security [facility] All Active Problems (Updated 12/13/24 @ 17:27 by Troy Garcia MD) [place] node (Acute) Low blood potassium (Acute) Hypertension (Chronic) Abnormal transaminases (Acute) Acute hypokalemia (Acute) Respiratory arrest (Acute) Opioid overdose (Acute) DVT (deep venous thrombosis) (Chronic) Septic embolism (Acute) Septic pulmonary embolism (Acute) Endocarditis (Acute) Gram-positive bacteremia (Acute) Cavitary pneumonia (Acute) Acute superficial venous thrombosis of both lower extremities (Acute) Opiate withdrawal (Acute) Left lower lobe pneumonia (Acute) Social History Smoking/Tobacco Use Status: Current every day Tobacco Type: cigarettes Tobacco: How many years used: 10 Smoking risk assessment performed?: Yes Alcohol Intake: never Drug use: Daily Substance use type: marijuana, crack/cocaine and heroin Details: Xylazine and fentanyl use earlier today 10/11/23. Housing: house Do you feel safe at home: Yes Do you feel safe in your relationship?: Yes PAWSS Have you Been Recently Intoxicated or Drunk Within the Last 30 days?: No Have you Ever Experienced Previous Episodes of Alcohol Withdrawal?: No Have you ever Experienced Withdrawal Seizures?: No Have you ever Experienced Delirium Tremens(DT)s?: No Have you ever undergone Alcohol Rehabilitation Treatment (i.e, inpt ot outpatient treatment programs)?: No Have you ever Experienced Blackouts?: No Have you ever Combined Alcohol with other Downers within the last 90 days?: No Have you ever Combined Alcohol with any other Substance of Abuse during the last 90 days?: No Result: 0
[2024-12-13] MEDS: POTASSIUM CHLORIDE 20 MEQ/100 ML BAG 50 MEQ IV_INF (12:55)
[2024-12-13] MEDS: Potassium Chloride 20 MEQ TABCR PO (12:59)
[2024-12-13] MEDS: Enoxaparin 40 MG/0.4 ML SYR SC (13:00)
[2024-12-13 13:04] LABS: Troponin I 49 ng/L (<or=76)
[2024-12-13 13:14] LABS: Creatine Kinase 527 U/L (39-308)
[2024-12-13] MEDS: Normal Saline 500 ML 150 ML IV (13:15)
--- NOTE | 2024-12-13 13:23 | NUR.NOTE ---
Pt drowsy and reports feeling of increased drowsiness. Pt arousable, oriented x4, and communicative. Pt pupils constricted and pin point. Pt RR between 11-12 decreased from 16. This rn informed Dr Salazar. Verbal order for IN narcan given by provider. This rn administered 1mg Narcan with positive response within 2 min. Nursing Note:
[2024-12-13 13:47] LABS: Cannabinoids THC Positive (Negative); METHADONE URINE SCREEN Negative (Negative)
[2024-12-13 15:24] LABS: Troponin I 65 ng/L (<or=76)
--- NOTE | 2024-12-13 17:19 | W.PM.HP.N ---
Date of service: 12/13/24 Time of Service: 17:19 Assessment and Plan Assessment and plan (1) Endocarditis: Status: Acute Assessment and plan: this is not a formal diagnosis. Concerning considering PE findings as well as history. Echo is pending (2) Opiate withdrawal: Status: Acute Assessment and plan: Noted, will monitor. Reach out to for community resources. PT states that he has been sober from narcotics for over a year (3) Abnormal transaminases: Status: Acute Assessment and plan: hep c panel has been ordered. Recheck labs in am. (4) Opioid overdose: Status: Acute Assessment and plan: responded to narcan. monitor (5) Low blood potassium: Status: Acute Assessment and plan: replace and check in am (6) Osler node: Status: Acute Assessment and plan: per #1 History of Present Illness History of Present Illness Chief Complaint: overdose Narrative: 29-year-old gentleman with a known history of intravenous drug use states that he has been clean for quite some time but did take some fentanyl today. Patient then became unresponsive and had bystander CPR for 20 minutes before EMS arrived. Patient was given naloxone through an IO and rapidly recovered consciousness. While he was in the ED he was noted to have significant elevation in his liver function test. The patient states that he missed took the fentanyl for cocaine. Patient was recently here in September for gram-positive bacteremia which he left AGAINST MEDICAL ADVICE but did complete his treatment in [facility]. Upon my interview with the patient he was somewhat somnolent but did respond in a linear manner. Patient does endorse methamphetamine use. In regards to his diagnostic data white count of 12. Potassium at 3.0 with a chloride of 97. AST 335 ALT 423 alk phos 133 CK5 27. Urine drug screen is positive for amphetamines cocaine and THC but negative for opiates Review of Systems All systems reviewed & are unremarkable except as noted in HPI and below PFSH All Active Problems (Updated 12/13/24 @ 17:27 by Troy Garcia MD) Osler node (Acute) Low blood potassium (Acute) Hypertension (Chronic) Abnormal transaminases (Acute) Acute hypokalemia (Acute) Respiratory arrest (Acute) Opioid overdose (Acute) DVT (deep venous thrombosis) (Chronic) Septic embolism (Acute) Septic pulmonary embolism (Acute) Endocarditis (Acute) Gram-positive bacteremia (Acute) Cavitary pneumonia (Acute) Acute superficial venous thrombosis of both lower extremities (Acute) Opiate withdrawal (Acute) Left lower lobe pneumonia (Acute) Social History Smoking/Tobacco Use Status: Current every day Tobacco Type: cigarettes Tobacco: How many years used: 10 Smoking risk assessment performed?: Yes Alcohol Intake: never Drug use: Daily Substance use type: marijuana, crack/cocaine and heroin Details: Xylazine and fentanyl use earlier today 10/11/23. Housing: house Do you feel safe at home: Yes Do you feel safe in your relationship?: Yes Meds Allergies and Home Medications Allergies Allergy/AdvReac Type Severity Reaction Status Date / Time No Known Allergies Allergy Unverified 12/13/24 11:18 Home Medications ?Medication ?Instructions ?Recorded ?Confirmed ?Type Unknown [No Known Home Meds] 10/11/23 12/13/24 History Exam Narrative Exam Narrative: Head eyes ears nose and throat-poor dentition multiple pockmarks Neck-no lymphadenopathy no JVD no thyromegaly Cardiovascular-no murmur rubs gallops regular rate and rhythm Pulm-clear to auscultation with good air exchange Abdomen-soft nontender nondistended Extremity-possible Osler's nodes on his fingers Psych-he is alert responds to verbal stimuli but is still somewhat somnolent Results Labs 12/13/24 11:27 12/13/24 11:27 Labs: Laboratory Results - last 24 hr 12/13/24 12/13/24 12/13/24 11:27 12:35 13:15 WBC 12.08 H RBC 5.42 Hgb 17.1 Hct 49.4 MCV 91 MCH 31.5 MCHC 34.6 RDW 12.6 Plt Count 323 MPV 9.1 Immature Gran % 1.7 Neutrophils % 79.0 Lymphocytes % 14.2 Monocytes % 3.9 Eosinophils % 0.8 Basophils % 0.4 Nucleated RBC % 0.0 Absolute Neutrophils 9.54 H Absolute Lymphocytes 1.72 Absolute Monocytes 0.47 Absolute Eosinophils 0.10 Absolute Basophils 0.05 Sodium 138 Potassium 3.0 L Chloride 97 L Carbon Dioxide 31.7 Anion Gap 9.3 BUN 9 Creatinine 1.3 Est GFR (CKD-EPI 2020) 75.79 Glucose 204 H Calcium 9.0 Magnesium 2.2 Total Bilirubin 0.6 AST 335 H ALT 423 H Alkaline Phosphatase 133 H Creatine Kinase 527 H Troponin I 29 49 Total Protein 9.7 H Albumin 4.8 Salicylates < 2.8 Urine Opiates Screen Negative Urine Methadone Screen Negative Acetaminophen < 2 Ur Barbiturates Screen Negative Ur Tricyclics Screen Negative Ur Amphetamines Screen Positive A U Benzodiazepines Scrn Negative Urine Cocaine Screen Positive A Ur THC Screen Positive A Ethyl Alcohol < 3.0 12/13/24 14:27 WBC RBC Hgb Hct MCV MCH MCHC RDW Plt Count MPV Immature Gran % Neutrophils % Lymphocytes % Monocytes % Eosinophils % Basophils % Nucleated RBC % Absolute Neutrophils Absolute Lymphocytes Absolute Monocytes Absolute Eosinophils Absolute Basophils Sodium Potassium Chloride Carbon Dioxide Anion Gap BUN Creatinine Est GFR (CKD-EPI 2020) Glucose Calcium Magnesium Total Bilirubin AST ALT Alkaline Phosphatase Creatine Kinase Troponin I 65 Total Protein Albumin Salicylates Urine Opiates Screen Urine Methadone Screen Acetaminophen Ur Barbiturates Screen Ur Tricyclics Screen Ur Amphetamines Screen U Benzodiazepines Scrn Urine Cocaine Screen Ur THC Screen Ethyl Alcohol Last Vital Signs Temp 36.9 C 12/13/24 14:58 Pulse 92 H 12/13/24 14:10 Resp 16 12/13/24 14:10 BP 128/81 12/13/24 14:00 Pulse Ox 94 12/13/24 14:58 PAWSS Have you Been Recently Intoxicated or Drunk Within the Last 30 days?: No Have you Ever Experienced Previous Episodes of Alcohol Withdrawal?: No Have you ever Experienced Withdrawal Seizures?: No Have you ever Experienced Delirium Tremens(DT)s?: No Have you ever undergone Alcohol Rehabilitation Treatment (i.e, inpt ot outpatient treatment programs)?: No Have you ever Experienced Blackouts?: No Have you ever Combined Alcohol with other Downers within the last 90 days?: No Have you ever Combined Alcohol with any other Substance of Abuse during the last 90 days?: No Positive Blood Alcohol level on Presentation? [PCS.BAL]: No Evidence of Increased Autonomic Activity (i.e. HR>120, tremor, sweating, agitation, nausea)?: No Result: 0 Time Spent Time spent with Patient: 40-54 minutes Time was spent: preparing to see the patient(eg.review tests), obtaining and/or reviewing separately otained hiistory, ordering medications,tests, procedures, referring, communicating with other health healthcare administration internship, indepentently interpreting results, counseling the patient and care coordination
--- NOTE | 2024-12-13 18:53 | W.PC.ACHO ---
Registration Status: ADM ALMA Primary Language: Preferred Language: Bulgarian ED Information & Data Chief Complaint OD/Poison 12/13/24 12:36 Triage Note Pt believes it was fentanyl 12/13/24 11:10 that he took at roughly 10: 15 this morning- pt found unresponsive by roommate, CPR started- CPR took place for roughly 35 minutes, 2 mg Narcan administered via EMS via IO- pt now A/O- complaints of chest pain and slight nausea Most Recent Vital Signs Temperature 36.9 C 12/13/24 14:58 Temperature Source Temporal Artery Scan 12/13/24 14:58 Pulse 102 H 12/13/24 18:15 Pulse 100 H 12/13/24 18:15 Respiratory Rate 19 12/13/24 18:15 Respiratory Effort Normal 12/13/24 14:58 Respiratory Depth Normal 12/13/24 14:58 Respiratory Pattern Normal 12/13/24 14:58 Blood Pressure 117/65 12/13/24 18:15 Blood Pressure Mean 79 12/13/24 18:15 Pulse Oximetry 93 12/13/24 18:15 Oxygen Delivery Method Room Air 12/13/24 14:58 Oxygen Flow Rate 0 12/13/24 14:58 Pain Level 7 12/13/24 11:10 Allergies No Known Allergies Allergy (Unverified 12/13/24 11:18) Precautions Isolation Standard precaution 12/13/24 11:14 Active Medications Generic Name Dose Route Start Last Admin Trade Name Freq PRN Reason Stop Dose Admin Enoxaparin Sodium 40 mg 12/13/24 13:00 12/13/24 13:00 Enoxaparin 40 Mg/0.4 Ml Syr SC 40 mg Q24H MIAH Administration IV IV Catheter Type [Right Peripheral IV Antecubital] IV Catheter Type [Left] IO (Intraosseous) IV Catheter Gauge [Right 18 Antecubital] IV Catheter Gauge [Left] 18 Diet Orders Category Date Time Status Regular/Normal [DIET] Nutrition 12/13/24 Lunch Active Diagnostics 12/13/24 12/13/24 12/13/24 Range/Units 19:00 14:27 13:15 WBC (4.4-10.8) 10^3/uL RBC (4.36-5.78) 10^6/uL Hgb (13.5-17.5) g/dL Hct (40.0-50.0) % MCV (80-95) fL MCH (27.0-33.0) pg MCHC (32.0-36.0) % RDW (11.8-14.1) % Plt Count (130-400) 10^3/uL MPV (8.0-11.0) fL Immature Gran % % Neutrophils % % Lymphocytes % % Monocytes % % Eosinophils % % Basophils % % Nucleated RBC % (0.0-0.3) % Absolute Neutrophils (1.2-6.7) 10^3/uL Absolute Lymphocytes (1.2-3.4) 10^3/uL Absolute Monocytes (0.1-0.8) 10^3/uL Absolute Eosinophils (0.0-0.7) 10^3/uL Absolute Basophils (0.0-0.2) 10^3/uL Sodium (136-145) mmol/L Potassium (3.5-5.1) mmol/L Chloride (98-107) mmol/L Carbon Dioxide (21.0-32.0) mmol/L Anion Gap (3-11) mmol/L BUN (7-18) mg/dL Creatinine (0.70-1.30) mg/dL Est GFR (CKD-EPI 2020) (mL/min/1.73m2) Glucose (74-106) mg/dL Calcium (8.5-10.1) mg/dL Magnesium (1.8-2.4) mg/dL Total Bilirubin (0.2-1.0) mg/dL AST (15-37) U/L ALT (16-63) U/L Alkaline Phosphatase (46-116) U/L Creatine Kinase (39-308) U/L Troponin I 65 (<or=76) ng/L Total Protein (6.4-8.2) g/dL Albumin (3.4-5.0) g/dL Salicylates (<2.8) mg/dL Urine Opiates Screen Negative (Negative) Urine Methadone Screen Negative (Negative) Acetaminophen Pending (10-30) ug/mL Ur Barbiturates Screen Negative (Negative) Ur Tricyclics Screen Negative (Negative) Ur Amphetamines Screen Positive A (Negative) U Benzodiazepines Scrn Negative (Negative) Urine Cocaine Screen Positive A (Negative) Ur THC Screen Positive A (Negative) Ethyl Alcohol (<10) mg/dL Hepatitis A IgM Ab Hep Bs Antigen Hep B Core Total Ab Hepatitis C Antibody 12/13/24 12/13/24 Range/Units 12:35 11:27 WBC 12.08 H (4.4-10.8) 10^3/uL RBC 5.42 (4.36-5.78) 10^6/uL Hgb 17.1 (13.5-17.5) g/dL Hct 49.4 (40.0-50.0) % MCV 91 (80-95) fL MCH 31.5 (27.0-33.0) pg MCHC 34.6 (32.0-36.0) % RDW 12.6 (11.8-14.1) % Plt Count 323 (130-400) 10^3/uL MPV 9.1 (8.0-11.0) fL Immature Gran % 1.7 % Neutrophils % 79.0 % Lymphocytes % 14.2 % Monocytes % 3.9 % Eosinophils % 0.8 % Basophils % 0.4 % Nucleated RBC % 0.0 (0.0-0.3) % Absolute Neutrophils 9.54 H (1.2-6.7) 10^3/uL Absolute Lymphocytes 1.72 (1.2-3.4) 10^3/uL Absolute Monocytes 0.47 (0.1-0.8) 10^3/uL Absolute Eosinophils 0.10 (0.0-0.7) 10^3/uL Absolute Basophils 0.05 (0.0-0.2) 10^3/uL Sodium 138 (136-145) mmol/L Potassium 3.0 L (3.5-5.1) mmol/L Chloride 97 L (98-107) mmol/L Carbon Dioxide 31.7 (21.0-32.0) mmol/L Anion Gap 9.3 (3-11) mmol/L BUN 9 (7-18) mg/dL Creatinine 1.3 (0.70-1.30) mg/dL Est GFR (CKD-EPI 2020) 75.79 (mL/min/1.73m2) Glucose 204 H (74-106) mg/dL Calcium 9.0 (8.5-10.1) mg/dL Magnesium 2.2 (1.8-2.4) mg/dL Total Bilirubin 0.6 (0.2-1.0) mg/dL AST 335 H (15-37) U/L ALT 423 H (16-63) U/L Alkaline Phosphatase 133 H (46-116) U/L Creatine Kinase 527 H (39-308) U/L Troponin I 49 29 (<or=76) ng/L Total Protein 9.7 H (6.4-8.2) g/dL Albumin 4.8 (3.4-5.0) g/dL Salicylates < 2.8 (<2.8) mg/dL Urine Opiates Screen (Negative) Urine Methadone Screen (Negative) Acetaminophen < 2 (10-30) ug/mL Ur Barbiturates Screen (Negative) Ur Tricyclics Screen (Negative) Ur Amphetamines Screen (Negative) U Benzodiazepines Scrn (Negative) Urine Cocaine Screen (Negative) Ur THC Screen (Negative) Ethyl Alcohol < 3.0 (<10) mg/dL Hepatitis A IgM Ab Pending Hep Bs Antigen Pending Hep B Core Total Ab Pending Hepatitis C Antibody Pending Intake and Output - 24 Hour Total 12/13/24 10:56 thru 12/13/24 17:30 Intake Total 500 Balance 500 Weight 68.5 kg Intake: IV 500 Falls Risk Assessment History of Falls No History 12/13/24 14:58 Contributing Factors No Factors,Impairments 12/13/24 14:58 Ambulatory Aids Independent 12/13/24 14:58 Tubes/Lines With any additional score 12/13/24 14:58 Gait Evaluation W/any additional score 12/13/24 14:58 Cognition No cognitive impairment 12/13/24 11:40 Fall Total Score 43 12/13/24 14:58 Level of Risk Moderate Risk 12/13/24 14:58 Problems (Last Reviewed 12/13/24 @ 12:33 by Aki Salazar MD) Osler node (Acute) Low blood potassium (Acute) Hypertension (Chronic) Abnormal transaminases (Acute) Acute hypokalemia (Acute) Respiratory arrest (Acute) Opioid overdose (Acute) Endocarditis (Acute) Opiate withdrawal (Acute) Notes 12/13/24 13:23 Nursing Notes by Sally Smith Pt drowsy and reports feeling of increased drowsiness. Pt arousable, oriented x4, and communicative. Pt pupils constricted and pin point. Pt RR between 11-12 decreased from 16. This rn informed Dr Salazar. Verbal order for IN narcan given by provider. This rn administered 1mg Narcan with positive response within 2 min. Nursing Note: Initialized on 12/13/24 13:23 - END OF NOTE v v v v v v v v v Sending and/or Receiving Nurses: Please use comment section below to note any information pertinent to the patient hand-off not included above. Information / Comments:a/c IV not functional at time of transfer. Report received from: Lucila INDUSTRIAL GAS PRODUCTION OPERATOR. [facility]
[2024-12-13] MEDS: Potassium Chloride 20 MEQ TABCR 40 MEQ PO (21:39)
[2024-12-13] MEDS: Normal Saline Flush 10 ML SYR IVP (21:40)
[2024-12-14 04:47] VITALS: BP 122/87; PULSE 73; RESP 17; TEMP 36.5; O2SAT 96
[2024-12-14 07:27] VITALS: BP 114/70; PULSE 70; RESP 16; TEMP 36.3; O2SAT 98
--- NOTE | 2024-12-14 08:57 | INITIAL_ITS ---
Date of service: 12/14/24 Time of Service: 08:59 Care Management Initial Assmt Initial Assessment Reason for Hospitalization: overdose Functional Status/Living Situation Patient Presentation: Nila presented to the ED yesterday afternoon. He apparently had injected Fentanyl, thinking it was cocaine, and became unresponsive. He received CPR for 20 minutes in the field and received 2 mg nalaxone from EMS. This morning Nila was lying in bed when CM met with him. He immediately sat up when CM entered the room and was he was polite and pleasant. Nila was offered the women's lacrosse coach, but he did not wish to meet with the motor coach tour operator. He was made aware that the motor coach tour operator is always available, that he can call on his own, or ask staff to call at any time. Nila stated that he intends to restart attending his groups. Nila recently moved from [place] back to this area and is living with his Dad. He feels that being back in this environment led to his relapse. He may return to [place]. Nila has an 8 yo son that he has recently reconnected with, and he does not want to mess that up. Town of Residence: [facility] Resides with: Parent (Living with his dad, Cy) Significant Other/Family: Local (Cy, and also his son, who is also named Cy) Natural Supports: Dad, AA groups Employment Status: Unemployed Instrumental Activities of Daily Living (ADLs): Independent Advance Directives Advance Directives: Do you have an Advance Directive: N , 21:51 AD On File at [facility]: N 12/28/15, 21:36 Date Asked 12/13/24 12/13/24, 11:11 AD Date Reviewed 12/13/24 12/13/24, 13:54 COLST On File at [facility] COLST Date Scanned Code Status Resuscitation Status Full Code Insurance Coverage/Financial Issues Insurance: Medicaid of [place]? Care Team Visit Care Team Role Provider Type Unknown Unknown Primary Care Provider STAFF PHYSICIAN Aki Salazar MD Emergency Provider [facility] STAFF PHYSICIAN Troy Garcia MD Admit Provider [facility] STAFF PHYSICIAN Attending Provider Discharge Potential Discharge Needs: PCP F/U Appt (needs to establish with PCP annette Greenberg) and Other (assistant men's soccer coach) Anticipated Barriers to Discharge: None Identified Patient/Family Education Needs: Review discharge instructions, discuss Ask Me Three Transportation: Private vehicle Plan: Anticipate that Nila will discharge home once medically stable, possibly today. He will f/u with his new PCP and his recovery supports and continue per his plan of care. CM will continuei to follow. Social Determinants of Health Screening Social Determinants of health last assessed in clinic: 12/14/24 Will the Patient Participate in the Screening?: Yes Do you worry about having a steady place to live?: no Problems where you live: other In the past 12 months, have you had to go without electric, gas, oil or water in your home?: no 1. Within the past 12 months, we worried whether our food would run out before we got money to buy more.: Sometimes true 2. Within the past 12 months, the food we bought just didn't last and we didn't have money to get more.: Sometimes true Has lack of transportation kept you from medical appointments or from doing things needed for daily living?: no Has anyone in your life made you feel unsafe or unsupported?: no How hard is it for you to pay for the very basics like food, housing, medical care, and heating? Would you say it is:: Not hard at all Do you want help finding or keeping work or a job?: I do not need or want help If for any reason you need help with day-to-day activities such as bathing, preparing meals, shopping, managing finances, etc., do you get the help you need?: I don?t need any help How often do you feel lonely or isolated from those around you?: Never Do you speak a language other than Mexican at home?: No Does the patient want assistance with any of the above?: No Health Related Social Needs Health related social needs: inadequate housing (Z59.1) and food insecurity (Z59.41) [facility] All Active Problems (Updated 12/13/24 @ 17:27 by Troy Garcia MD) Osler node (Acute) Low blood potassium (Acute) Hypertension (Chronic) Abnormal transaminases (Acute) Acute hypokalemia (Acute) Respiratory arrest (Acute) Opioid overdose (Acute) DVT (deep venous thrombosis) (Chronic) Septic embolism (Acute) Septic pulmonary embolism (Acute) Endocarditis (Acute) Gram-positive bacteremia (Acute) Cavitary pneumonia (Acute) Acute superficial venous thrombosis of both lower extremities (Acute) Opiate withdrawal (Acute) Left lower lobe pneumonia (Acute) Social History Smoking/Tobacco Use Status: Current every day Tobacco Type: cigarettes Tobacco: How many years used: 10 Smoking risk assessment performed?: Yes Alcohol Intake: never Drug use: Daily Substance use type: marijuana, crack/cocaine and heroin Details: Xylazine and fentanyl use earlier today 10/11/23. Housing: house Do you feel safe at home: Yes Do you feel safe in your relationship?: Yes
[2024-12-14] MEDS: Potassium Chloride 20 MEQ TABCR 40 MEQ PO (10:19)
[2024-12-14] MEDS: Normal Saline Flush 10 ML SYR IVP (10:19)
[2024-12-14 10:52] VITALS: BP 122/66; PULSE 98; RESP 16; TEMP 36.3; O2SAT 96
--- NOTE | 2024-12-14 10:55 | DI.US_ITS ---
APPROVED REPORT EXAM: Comprehensive 2D, Doppler, and color-flow Echocardiogram Patient Location: In-Patient Room/Bed: [address] Operator: Nils Manzanares RDCS (AE) Indications: Endocarditis Other Information Study Quality: Good Conclusion Normal left ventricular wall thickness and chamber size. Ejection fraction is 60%. Wall motion is normal Normal right ventricular size and function Both atria are normal in size There is no structural or hemodynamically significant valvular disease No valvular vegetations are noted Wall motion Left Ventricle The left ventricle is normal size. Left ventricular systolic function is normal. The left ventricular ejection fraction is within the normal range. There is normal left ventricular wall thickness. There is normal LV segmental wall motion. There is no ventricular septal defect visualized. LVEF is 60%. Right Ventricle The right ventricle is normal size. The right ventricular systolic function is normal. Atria The left atrium size is normal. The right atrium size is normal. Aortic Valve The aortic valve is normal in structure. There is no aortic valvular stenosis. No aortic regurgitation is present. Mitral Valve The mitral valve is normal in structure. No evidence of mitral valve stenosis. There is no mitral valve regurgitation noted. Tricuspid Valve The tricuspid valve is normal in structure. There is no tricuspid valve stenosis. Trace tricuspid regurgitation. Pulmonic Valve The pulmonary valve is normal in structure. There is no pulmonic valvular stenosis. There is no pulmonic valvular regurgitation. Great Vessels The aortic root is normal in size. The ascending aorta is normal in size. Aortic arch is not visualized. IVC is normal in size and collapses >50% with inspiration. Pericardium There is no pericardial effusion. 2D Dimensions IVSD d PLAX 0.71 cm M: 0.6-1.2 Ao Root d 2.71 cm M: 3.1 - 3.7 LVPW d PLAX 0.66 cm M: 0.6 - 1.2 Ao Asc Diam d 2.25 cm M: 2.6 - 3.4 LVID d PLAX 5.10 cm M: 4.2 - 5.8 LVDs 3.46 cm M: 2.5 - 4.0 LV EF Teichholz 59.9 % FS 32.04 % LV EDV (Teich) 123.6 mL LV ESV (Teich) 49.6 mL Stroke Vol Index (Teich) 40.00 M-Mode TAPSE 2.39 cm (M/F) >1.7 Auto EF LV EDV A4C 129.7 mL LV EDV A2C 120.8 mL LV EDV BP 128.8 mL LV ESV A4C 57.2 mL LV ESV A2C 48.9 mL LV ESV BP 53.7 mL LVEF(%) A4C 55.9 % LVEF(%) A2C 59.5 % LVEF(%) BP 58.3 % LV SV A4C 72.5 ml LV SV A2C 71.9 ml LV SV BP 75.1 ml LV CO A4C 6.3 L/min LV CO A2C 6.0 L/min LV CO BP 6.1 L/min HR A4C 86.33 BPM HR A2C 82.95 BPM LV EDV Index (BP) LA Volume LA Length A4C 3.8 cm LA Length A2C LA Area A4C s 7.26 cm2 LA Area A2C s LA Vol A4C A-L 11.68 mL LA Vol A2C A-L LA Vol Biplane A-L LA Vol A4C MOD 11.0 mL LA Vol A2C MOD LA Vol BP MOD RA Volume RA Area A4C 8.9 cm2 RA ESV A4C (A-L) 17.1mL RA Vol/BSA A4C A-L RA Length A4C 3.9 cm RA ESV A4C (MOD) 16.3mL LV Diastology MV E' medial 0.177 (>0.07 m/s) MV E Vmax 0.76 (0.4-1.3 m/s) MV E/E' MED 4.28 (<14) MV A Vmax 0.45 (0.4-1.3 m/s) MV E' lateral 0.248 (>0.1 m/s) E/A Ratio 1.7 MV E/E' LAT 3.05 (<14) MV E' Average 0.212 m/s MV E/E'(average) 3.56 Aortic Valve AoV Vmax 1.31 m/s LVOT Vmax 1.24 m/s AoV Peak Grad 6.9 mmHg LVOT Peak Grad 6.2 mmHg AoV Area (Vmax) 3.07 cm2 LVOT VTI 0.216 m AoV VTI 0.235 m LVOT Mean Grad 3.3 mmHg AoV Mean Yoel. 1.01 m/s LVOT SV 69.65 mL AoV Mean Grad 4.3 mmHg LVOT Diam s 2.00 cm AoV Area (VTI) 2.97 cm2 AV Regurg Peak Gr. 6.86 mmHg Velocity Ratio 0.95 Mitral Valve MV DT 197 (160-240 msec) Pulmonary Valve PV Vmax 0.84 (0.5-1.5 m/s) RVOT Vmax 0.72 m/s PV Peak Grad 2.9 mmHg RVOT Peak Gr. 2.1 mmHg PV Mean Yoel 0.62 m/s RVOT VTI 0.126 m PV Mean Grad 1.7 mmHg RVOT Mean Gr. 1.1 mmHg
--- NOTE | 2024-12-14 11:46 | PHA.REVIEW2 ---
Pharmacy Admission Review Admission Clinical Review Admission Pharmacy Review: Osler node (Acute) Low blood potassium (Acute) Abnormal transaminases (Acute) Acute hypokalemia (Acute) Respiratory arrest (Acute) Opioid overdose (Acute) Endocarditis (Acute) Opiate withdrawal (Acute) No Known Allergies Allergy (Unverified 12/13/24 11:18) Resuscitation Status Full Code Height 5 ft 10 in Weight 68.9 kg Comments Comments/Follow Ups: Possible discharge pending ECHO results Pharmacy Admission Review Renal Dosing Renal Dosing: BUN 9 mg/dL (7-18) 12/13/24 11:27 Creatinine 1.3 mg/dL (0.70-1.30) 12/13/24 11:27 Medications needing adjustments: Reviewed (CrCl 80 mL/min) List of meds needing interventions: Current medications are okay Anticoagulation Anticoagulation: Hgb 17.1 g/dL (13.5-17.5) 12/13/24 11:27 Hct 49.4 % (40.0-50.0) 12/13/24 11:27 Plt Count 323 10^3/uL (130-400) 12/13/24 11:27 Creatinine 1.3 mg/dL (0.70-1.30) 12/13/24 11:27 DVT Prophylaxis: Reviewed Medications: Enoxaparin (40mg daily) Relevant Labs Relevant Labs: Sodium 138 mmol/L (136-145) 12/13/24 11:27 Potassium 3.0 mmol/L (3.5-5.1) L 12/13/24 11:27 Chloride 97 mmol/L (98-107) L 12/13/24 11:27 Magnesium 2.2 mg/dL (1.8-2.4) 12/13/24 11:27 Electrolytes, C-Reactive P, ESR: Reviewed (Labs pending) Cardiac Review Cardiac Review: Troponin I 65 ng/L (<or=76) 12/13/24 14:27 BP, HR, EF%: Reviewed (BP WNL, HR 98) QTc Review QTc: Reviewed (466 from 12/13/24) IV to PO Switch IV Medications: Reviewed Home Meds Home Med List reviewed: Reviewed Relevent Home Meds Not ordered & why?: No known home meds Current Meds Current Medication Order Review: Reviewed Comments Comments/Follow Ups: Possible discharge pending ECHO results
[2024-12-14 12:23] LABS: Hepatitis A Antibody IgM Negative (Negative); Hepatitis C Ab w Rflx HCV PCR Reactive (Negative)
--- NOTE | 2024-12-14 12:35 | DSE_ITS ---
Date of service: 12/14/24 Time of Service: 12:35 DS: Diagnosis Discharge Diagnosis (1) Endocarditis: Status: Acute (2) Opiate withdrawal: Status: Acute (3) Abnormal transaminases: Status: Acute (4) Opioid overdose: Status: Acute (5) Low blood potassium: Status: Acute (6) Osler node: Status: Acute Discharge Plan Disposition Patient Disposition: Home Condition: Stable Discharge Details Reason For Visit: overdose Admit Date/Time: 12/13/24 12:32 Admit Provider: Troy Garcia Attending Provider: Troy Garcia Primary Care Provider: Unknown,Unknown Hospital Course Hospital Course: This is a 29-year-old gentleman who was admitted after having accidental overdose. Patient did have CPR during his preoperative course and was given Narcan with good effect. While in the hospital an echocardiogram was done to rule out endocarditis. Conclusion Normal left ventricular wall thickness and chamber size. Ejection fraction is 60%. Wall motion is normal Normal right ventricular size and function Both atria are normal in size There is no structural or hemodynamically significant valvular disease No valvular vegetations are noted Pt's mentation improved to the point he was deemed safe for dc. Pt denies HI/SI s/s cw schizophrenia. PT did refuse follow up labs today Home Meds and New Rx's Prescriptions: No Action No Known Home Meds Discharge Instructions Activity:: Activity as Tolerated Equipment/Supplies:: No Equipment Needed Diet:: As Tolerated Discharge Orders Discharge Orders: Discharge Order (Routine); Ordered 12/14/24 Ordered By: Troy Garcia DS: Summary Time Spent with Patient providing and/or coordinating discharge services: Less than 30 minutes Status at Discharge Functional status at discharge: independent ambulation Overall status at discharge: patient is back to baseline Mental Status: mental status grossly normal Speech and Movement: speech and movement normal Mood: congruent mood Affect: normal affect Quality:SDOH Health Related Social Needs: Health related social needs inadequate housing food in security Exam Narrative Exam Narrative: Head eyes ears nose and throat-poor dentition multiple pockmarks Neck-no lymphadenopathy no JVD no thyromegaly Cardiovascular-no murmur rubs gallops regular rate and rhythm Pulm-clear to auscultation with good air exchange Abdomen-soft nontender nondistended Extremity-possible Osler's nodes on his fingers Psych-he is alert responds to verbal stimuli but is still somewhat somnolent Psych Mental Status: mental status grossly normal Speech and Movement: speech and movement normal Mood: congruent mood Affect: normal affect DS: Data Vitals/I&O Vitals and I&O: Vital Signs Temperature 36.3 C L 12/14/24 10:52 Temperature Source Temporal Artery Scan 12/14/24 10:52 Pulse 98 H 12/14/24 10:52 Pulse 100 H 12/13/24 18:15 Respiratory Rate 16 12/14/24 10:52 Respiratory Effort Normal 12/13/24 14:58 Respiratory Depth Normal 12/13/24 14:58 Respiratory Pattern Normal 12/13/24 14:58 Blood Pressure 122/66 12/14/24 10:52 Blood Pressure Mean 84 12/14/24 10:52 Pulse Oximetry 96 12/14/24 10:52 Oxygen Delivery Method Room Air 12/14/24 10:52 Oxygen Flow Rate 0 12/14/24 10:52 Pain Level 7 12/13/24 11:10 Intake & Output 12/13/24 12/14/24 12/14/24 23:59 11:59 23:59 Intake Total 750 / 750 20 / 20 Balance 750 / 750 20 / 20 Weight 68.5 kg 68.9 kg Intake: IV 510 / 510 20 / 20 Oral 240 / 240 Other: Comment voiding ind Data Completed and Pending Labs on day of discharge: Labs from last 24 hours 12/14/24 12/13/24 12/13/24 08:41 19:00 14:27 WBC Pending RBC Pending Hgb Pending Hct Pending MCV Pending MCH Pending MCHC Pending RDW Pending Plt Count Pending MPV Pending Immature Gran % Pending Neutrophils % Pending Lymphocytes % Pending Monocytes % Pending Eosinophils % Pending Basophils % Pending Absolute Neutrophils Pending Absolute Lymphocytes Pending Absolute Monocytes Pending Absolute Eosinophils Pending Absolute Basophils Pending Sodium Pending Potassium Pending Chloride Pending Carbon Dioxide Pending Anion Gap Pending BUN Pending Creatinine Pending Est GFR (CKD-EPI 2020) Pending Glucose Pending Calcium Pending Total Bilirubin Pending AST Pending ALT Pending Alkaline Phosphatase Pending Creatine Kinase Pending Troponin I 65 Total Protein Pending Albumin Pending Urine Opiates Screen Urine Methadone Screen Acetaminophen Cancelled Ur Barbiturates Screen Ur Tricyclics Screen Ur Amphetamines Screen U Benzodiazepines Scrn Urine Cocaine Screen Ur THC Screen 12/13/24 12/13/24 12/13/24 13:15 12:35 11:27 WBC RBC Hgb Hct MCV MCH MCHC RDW Plt Count MPV Immature Gran % Neutrophils % Lymphocytes % Monocytes % Eosinophils % Basophils % Absolute Neutrophils Absolute Lymphocytes Absolute Monocytes Absolute Eosinophils Absolute Basophils Sodium Potassium Chloride Carbon Dioxide Anion Gap BUN Creatinine Est GFR (CKD-EPI 2020) Glucose Calcium Total Bilirubin AST ALT Alkaline Phosphatase Creatine Kinase 527 H Troponin I 49 Total Protein Albumin Urine Opiates Screen Negative Urine Methadone Screen Negative Acetaminophen Ur Barbiturates Screen Negative Ur Tricyclics Screen Negative Ur Amphetamines Screen Positive A U Benzodiazepines Scrn Negative Urine Cocaine Screen Positive A Ur THC Screen Positive A PFSH All Active Problems (Updated 12/13/24 @ 17:27 by Troy Garcia MD) Osler node (Acute) Low blood potassium (Acute) Hypertension (Chronic) Abnormal transaminases (Acute) Acute hypokalemia (Acute) Respiratory arrest (Acute) Opioid overdose (Acute) DVT (deep venous thrombosis) (Chronic) Septic embolism (Acute) Septic pulmonary embolism (Acute) Endocarditis (Acute) Gram-positive bacteremia (Acute) Cavitary pneumonia (Acute) Acute superficial venous thrombosis of both lower extremities (Acute) Opiate withdrawal (Acute) Left lower lobe pneumonia (Acute) Social History Smoking/Tobacco Use Status: Current every day Tobacco Type: cigarettes Tobacco: How many years used: 10 Smoking risk assessment performed?: Yes Alcohol Intake: never Drug use: Daily Substance use type: marijuana, crack/cocaine and heroin Details: Xylazine and fentanyl use earlier today 10/11/23. Housing: house Do you feel safe at home: Yes Do you feel safe in your relationship?: Yes Time Spent with Patient Time Spent with Patient: <45 minutes Time was spent: preparing to see the patient(eg.review tests), obtaining and/or reviewing separately otained hiistory, ordering medications,tests, procedures, referring, communicating with other health dialysis patient care technician, indepentently interpreting results, counseling the patient and care coordination
--- NOTE | 2024-12-14 13:37 | CMDISCH_ITS ---
Date of service: 12/14/24 Time of Service: 13:37 LACE Index Scoring Tool Questions: Length of Stay (in days): 1 Was the patient admitted via the E.D.?: Yes E.D. Visits: 1 Answers: Total Score: 5 Risk of Readmission: Low Risk Care Management Discharge Plan Reason for Hospitalization: unintentional overdose Discharge Plan: Nila is discharged home today with no new services. He was looking well and stated feeling so. He plans to attend a meeting today. Nila was referred to the T-doc at [facility]. Nila was transported home in a private vehicle. Patient/Family Education Needs: Review of discharge instructions, activity, limitations, and discuss Ask me 3. SDOH Health Related Social Needs: Health related social needs inadequate housing food in security
[2024-12-17 12:22] LABS: HCV RNA Detection Quantitative 34500 IU/mL (Undetected); HCV RNA Qualitative Detected (Undetected)
[2024-12-17 13:30] LABS: HBc IgM Ab, S Negative (Negative)
== END 2024-12-14 13:09 | disposition home or self-care (01) ==
LOC: ER 13:54 → ICU 14:47 → MS 18:51
PROVIDERS: Admitting Provider Hospitalist; Emergency Provider Student in an Organized Health Care Education/Training Program; Responsible Provider Hospitalist; Visit Provider Hospitalist
DX: T40.411A Poisoning by fentanyl or fentanyl analogs, accidental (unintentional), initial encounter (principal); I46.8 Cardiac arrest due to other underlying condition; F11.93 Opioid use, unspecified with withdrawal; R74.8 Abnormal levels of other serum enzymes; E87.6 Hypokalemia; R74.01 Elevation of levels of liver transaminase levels; T40.2X1A Poisoning by other opioids, accidental (unintentional), initial encounter; Z86.718 Personal history of other venous thrombosis and embolism; F17.210 Nicotine dependence, cigarettes, uncomplicated; F12.90 Cannabis use, unspecified, uncomplicated; F14.90 Cocaine use, unspecified, uncomplicated; Z59.19 Other inadequate housing; Z59.41 Food insecurity; I10 Essential (primary) hypertension
CPT/HCPCS: 00123; 36415; 80053; 80307; 82550; 86704; 86709; 86803; 87340; 87522; 93005; 96361; 96372; 96374; 99285; J1650; 71046; 71120; 80320; 80329; 83735; 84484; 85025; 86705; 93010; 93306; 99222; 99238; G0378; J2312; J2405; J3480